=== PATIENT | female | born 1975 ===

== ENCOUNTER 2018-02-08 09:22 | Emergency (ER) | payer OTHER ==
[2018-02-08 09:22] VITALS: BMI 21.6
[2018-02-08 09:44] VITALS: TEMP 97.8
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
[2018-02-08] MEDS ORDERED: Oxycodone/Acetaminophen 5/325 mg Tab PO STA (09:56)
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
--- NOTE | 2018-02-08 11:15 | RAD ---
Date of service: 02/08/2018 PROCEDURE: Left Knee and patella Radiographs. HISTORY: Pain. COMPARISON: None. FINDINGS: BONES: Normal. No fracture. JOINTS: Normal. No osteoarthritis. JOINT EFFUSION: None. OTHER FINDINGS: None. IMPRESSION: Normal radiographs of the left knee.
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
[2018-02-08 12:16] VITALS: BP 104/64; PULSE 61; RESP 17; O2SAT 97
== END 2018-02-08 12:55 | disposition home or self-care (01) ==
LOC: ED 09:22
DX: S13.4XXA Sprain of ligaments of cervical spine, initial encounter (principal); V43.62XA Car passenger injured in collision with other type car in traffic accident, initial encounter; Y92.410 Unspecified street and highway as the place of occurrence of the external cause; R51 Headache; M25.511 Pain in right shoulder; M25.562 Pain in left knee; E04.2 Nontoxic multinodular goiter

== ENCOUNTER 2018-03-06 13:26 | Inpatient (IN) | payer MEDICAID, OTHER ==
[2018-03-06] MEDS ORDERED: Sodium Chloride 0.9% 1,000 ML IV STA (14:21)
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
[2018-03-06 15:26] LABS: BASO # 0.01 K/mm3 (0.0-2.0); BASO % 0.1 % (0.0-3.0); GRAN % 90.6 % (50.0-68.0); HEMOGLOBIN 11.8 g/dL (12.0-16.0); LYMPH # 0.5 (1.2-3.4); LYMPH % 6.2 % (22.0-35.0); MEAN CELL VOLUME 87.6 fl (80.0-105.0); MEAN CORPUSCULAR HEMOGLOBIN 29.9 pg (25.0-35.0); MEAN CORPUSCULAR HGB CONC 34.2 g/dl (31.0-37.0); MEAN PLATELET VOLUME 10.5 fl (7.0-11.0); MONO # 0.3 (0.1-0.6); MONO % 3.1 % (1.0-6.0); PLATELET COUNT 141 10^3/uL (120.0-450.0); RBC 3.94 10^6/uL (3.5-6.1); RED CELL DISTRIBUTION WIDTH 13.8 % (11.5-14.5); WHITE BLOOD COUNT 8.5 10^3/ul (4.5-11.0)
[2018-03-06] MEDS ORDERED: cefTRIAXone 1 gm 1 GM/100 ML BAG IVPB STA (15:42)
--- NOTE | 2018-03-06 15:48 | RAD ---
Date of service: 03/06/2018 HISTORY: fever COMPARISON: No prior. FINDINGS: LUNGS: No active pulmonary disease. PLEURA: No significant pleural effusion identified, no pneumothorax apparent. CARDIOVASCULAR: Normal. OSSEOUS STRUCTURES: No significant abnormalities. VISUALIZED UPPER ABDOMEN: Normal. OTHER FINDINGS: None. IMPRESSION: No active disease.
[2018-03-06 16:04] LABS: ALB/GLOB RATIO 1.2 (1.1-1.8); ALBUMIN 3.8 g/dL (3.0-4.8); ALT/SGPT 25 U/L (7-56); AST/SGOT 27 U/L (14-36); BLOOD UREA NITROGEN 16 mg/dL (7-21); CALCIUM 9.1 mg/dL (8.4-10.5); GFR NON-AFRICAN AMERICAN 44
[2018-03-06 16:08] LABS: ANISOCYTOSIS SLIGHT; BAND 2 % (0-2); HYPOCHROMIA SLIGHT; LYMPHOCYTE 6 % (22.0-35.0); MONOCYTE 1 % (1.0-6.0); NEUTROPHIL 91 % (50.0-70.0); PLATELET ESTIMATE n (NORMAL); TOXIC GRANULATION SLIGHT
[2018-03-06 16:15] LABS: TROPONIN I < 0.01 ng/mL
[2018-03-06 16:37] LABS: URINE BILIRUBIN NEGATIVE (NEGATIVE); URINE BLOOD SMALL (NEGATIVE); URINE GLUCOSE (UA) NEGATIVE (NEGATIVE); URINE LEUKOCYTE ESTERASE SMALL Leu/uL (NEGATIVE); URINE PROTEIN 30 mg/dL (<30 mg/dL); URINE UROBILINOGEN 0.2 E.U./dL (<1 E.U./dL)
[2018-03-06 16:44] LABS: URINE APPEARANCE CLEAR (CLEAR); URINE COLOR YELLOW (YELLOW)
[2018-03-06 16:48] LABS: ERYTHROCYTE SEDIMENTATION RATE 68 mm/hr (0.0-20.0)
[2018-03-06 17:17] LABS: URINE BACTERIA MANY (NEG)
[2018-03-06 17:18] LABS: URINE AMORPHOUS SEDIMENT FEW
[2018-03-06] MEDS: Sodium Chloride 0.9% 1,000 ML IV SCH (18:11)
[2018-03-06 19:31] VITALS: BMI 20.7
--- NOTE | 2018-03-06 20:06 | CP.PCM.HP ---
Addendum entered and electronically signed by Jason Brito DO 09:08: In assessment and plan: Please replace 'Hx Morphine' with 'Hx Migraines' Original Note: <Jason Brito - Last Filed: 03/06/18 19:52> History of Present Illness - History of Present Illness History of Present Illness: Medicine H&P: Alisha PGY - 2, IM Resident Chief Complaint: Flank pain HPI: 42 year old female with no pertinent medical history presents with 2- 3 days of R flank and associated nausea. Patient was seen by her PMD yesterday , Dr. Chaves, who ordered a CT Abdomen/Pelvis, which revealed perinephric stranding on the right side, and instructed her to go to the ED. Patient also states that she is having burning on urination and appreciates a foul smell with urination. Patient denies any hematuria, but admits to subjective fevers and chills at home. Patient sister at bedside providing translation. Review of systems: 12 Point ROS Obtained and negative except as per HPI Surgical History: Patient denies Medical History: Migraines Allergies: Seafood Social History: Denies illicits, tobacco; + social alcohol Home Meds: Reviewed, as per MAR Family History: Kidney stones PMD: Dr. Chaves Present on Admission - Present on Admission Any Indicators Present on Admission: No Past Patient History - Infectious Disease Hx of Infectious Diseases: None - Past Medical History & Family History Past Medical History?: Yes - Past Social History Smoking Status: Never Smoked - CARDIAC Hx Cardiac Disorders: Yes (HYPOTENSION) - PULMONARY Hx Respiratory Disorders: No - NEUROLOGICAL Hx Neurological Disorder: Yes Hx Migraine: Yes - HEENT Hx HEENT Problems: Yes Other/Comment: TONSILITIS - RENAL Hx Chronic Kidney Disease: No - ENDOCRINE/METABOLIC Hx Endocrine Disorders: No - HEMATOLOGICAL/ONCOLOGICAL Hx Blood Disorders: No - INTEGUMENTARY Hx Dermatological Problems: No - MUSCULOSKELETAL/RHEUMATOLOGICAL Hx Musculoskeletal Disorders: No Hx Falls: No - GASTROINTESTINAL Hx Gastrointestinal Disorders: Yes (GASTRITIS) - GENITOURINARY/GYNECOLOGICAL Hx Genitourinary Disorders: No - PSYCHIATRIC Hx Psychophysiologic Disorder: No - SURGICAL HISTORY Hx Surgeries: Yes (TONSILECTOMY) - ANESTHESIA Hx Anesthesia: Yes Hx Anesthesia Reactions: No Hx Malignant Hyperthermia: No Meds Allergies/Adverse Reactions: Allergies Allergy/AdvReac Type Severity Reaction Status Date / Time seafood Allergy RASH Uncoded 02/08/18 09:27 Physical Exam - Constitutional Appears: Well - Head Exam Head Exam: ATRAUMATIC, NORMAL INSPECTION, NORMOCEPHALIC - Eye Exam Eye Exam: EOMI, Normal appearance, PERRL Pupil Exam: NORMAL ACCOMODATION, PERRL - ENT Exam ENT Exam: Mucous Membranes Moist, Normal Exam - Neck Exam Neck exam: Positive for: Normal Inspection - Respiratory Exam Respiratory Exam: Clear to Auscultation Bilateral, NORMAL BREATHING PATTERN - Cardiovascular Exam Cardiovascular Exam: REGULAR RHYTHM - GI/Abdominal Exam GI & Abdominal Exam: Normal Bowel Sounds, Soft. absent: Tenderness - Extremities Exam Extremities exam: Positive for: normal inspection - Back Exam Back exam: CVA tenderness (R), NORMAL INSPECTION - Neurological Exam Neurological exam: Alert, CN II-XII Intact, Normal Gait, Oriented x3, Reflexes Normal - Psychiatric Exam Psychiatric exam: Normal Affect, Normal Mood - Skin Skin Exam: Dry, Intact, Normal Color, Warm Results - Vital Signs Recent Vital Signs: Last Vital Signs Temp 98.7 F 03/06/18 19:16 Pulse 107 H 03/06/18 19:16 Resp 18 03/06/18 19:16 BP 92/56 L 03/06/18 19:16 Pulse Ox 98 03/06/18 18:43 - Labs Result Diagrams: 03/06/18 15:00 03/06/18 15:00 Assessment & Plan - Assessment and Plan (Free Text) Assessment: 42 year old female presenting with right sided flank tenderness indicative of pyelonephritis. CT abdomen pelvis shows perinephric stranding, and Aime's on R side is positive. Patient states she has subjective fevers and chills indicative of infection, but VSS and no leukocytosis here. Plan Pyelonephritis - Morphine prn for pain - Rocephin - IVF with NS - ACEP prn for fever Hx Morphine - No symptoms right now, nor does patient take home meds GI/DVT PPX - Viktoria score low, no chemical DVT PPX needed - GI PPX: pepcid <Rangasamy,Ajantha - Last Filed: 03/07/18 18:33> Results - Vital Signs Recent Vital Signs: Last Vital Signs Temp 99.2 F 08/23/18 16:48 Pulse 92 H 03/07/18 16:48 Resp 20 03/07/18 16:48 BP 84/60 L 03/07/18 16:48 Pulse Ox 95 03/07/18 16:48 - Labs Result Diagrams: 03/07/18 09:00 03/07/18 09:00 Labs: Laboratory Results - last 24 hr 03/07/18 03/07/18 03/07/18 03:40 09:00 09:00 WBC 3.5 L D RBC 3.35 L Hgb 10.0 L Hct 29.1 L MCV 86.9 MCH 29.9 MCHC 34.4 RDW 14.3 Plt Count 109 L MPV 10.5 Gran % 79.7 H Lymph % (Auto) 14.3 L [place] % (Auto) 5.1 Eos % (Auto) 0.6 L Baso % (Auto) 0.3 Gran # 2.79 Lymph # (Auto) 0.5 L [place] # (Auto) 0.2 Eos # (Auto) 0.0 Baso # (Auto) 0.01 pO2 VBG pH VBG pCO2 VBG HCO3 VBG Total CO2 VBG O2 Sat (Calc) VBG Base Excess VBG Potassium Glucose Lactate FiO2 Sodium 136 Potassium 3.2 L Chloride 105 Carbon Dioxide 23 Anion Gap 11 BUN 11 Creatinine 0.8 Est GFR ( Amer) > 60 Est GFR (Non-Af Amer) > 60 Random Glucose 129 H Calcium 8.4 Troponin I < 0.01 < 0.01 Venous Blood Potassium 03/07/18 03/07/18 15:15 16:50 WBC RBC Hgb Hct MCV MCH MCHC RDW Plt Count MPV Gran % Lymph % (Auto) [place] % (Auto) Eos % (Auto) Baso % (Auto) Gran # Lymph # (Auto) [place] # (Auto) Eos # (Auto) Baso # (Auto) pO2 285 H VBG pH 7.38 VBG pCO2 36.0 L VBG HCO3 21.3 VBG Total CO2 22.4 VBG O2 Sat (Calc) 100.2 H VBG Base Excess -3.3 L VBG Potassium 3.4 L Glucose 149 H Lactate 1.2 FiO2 21.0 Sodium 134.0 Potassium Chloride 108.0 H Carbon Dioxide Anion Gap BUN Creatinine Est GFR ( Amer) Est GFR (Non-Af Amer) Random Glucose Calcium Troponin I < 0.01 Venous Blood Potassium 3.4 L Attending/Attestation - Attestation I have personally seen and examined this patient.: Yes I have fully participated in the care of the patient.: Yes I have reviewed all pertinent clinical information: Yes Notes (Text): 03/07/18 18:31 Attending note; Patient seen and examined with resident in ER. Patient's boyfriend by the bedside. Patient is a 42 year old female with no pertinent medical history presents with 2-3 days of R flank and associated nausea. The patient was evaluated by her PMD yesterday. CT abdomen and pelvis was ordered. Which showed right-sided perinephric stranding. Patient also has urinary frequency .urgency and foul-smelling urine. Acute right-sided pyelonephritis; started on IV Rocephin. Continue IV fluids. Monitor patient closely. Urine culture is pending. Upon discharge patient will be referred to [facility] clinic.
[2018-03-06] MEDS: Morphine 2 mg/ml ISec IVP PRN (20:08)
--- NOTE | 2018-03-06 23:19 | CARD ---
APPROVED REPORT Date of service: 03/06/2018 EKG Measurement Heart [id number] <Conclusion> Sinus rhythm with with premature ventricular complexes Abnormal ECG
[2018-03-07] MEDS: Morphine 2 mg/ml ISec IVP PRN ×2 (02:40→11:00)
--- NOTE | 2018-03-07 03:30 | PCM.RRT ---
<Jason Brito - Last Filed: 03/07/18 03:11> KEYSEATING MACHINE SET UP OPERATOR Nurse Assessment - Situation Date: 03/07/18 Time KEYSEATING MACHINE SET UP OPERATOR was called: 02:47 KEYSEATING MACHINE SET UP OPERATOR Responder Arrival Time: 02:50 KEYSEATING MACHINE SET UP OPERATOR Location:: [address] [place] [address] Room Number: 366-1 KEYSEATING MACHINE SET UP OPERATOR Reason for Call: Chest Pain KEYSEATING MACHINE SET UP OPERATOR Called By: RN - IV IV Inserted during KEYSEATING MACHINE SET UP OPERATOR?: No - Respiratory Oxygen Delivery Method: Nasal Cannula @L/min Oxygen Flow Rate: 2 Received Nebulizer Treatments:: No Was the Patient Ventilated with Bag/Mask 100% O2?: No Secretions Suctioned?: No Was the Patient Placed on a Ventilator?: No - Medication Medications Administered During KEYSEATING MACHINE SET UP OPERATOR: morphine given prior to KEYSEATING MACHINE SET UP OPERATOR @ 2:40AM - Diagnostic Test Ordered EKG: Yes Chest X-Ray: No CT Scan: No - Stat Labs Ordered KEYSEATING MACHINE SET UP OPERATOR Stat Labs Ordered: TROPONIN CPR started during KEYSEATING MACHINE SET UP OPERATOR?: No - Vital Signs Vital Sign: Rapid Response Vital Sign Blood Pressure 102/68 Pulse Rate 100 Respiratory Rate 18 Temperature 98.3 F Oxygen Saturation 99 - Time KEYSEATING MACHINE SET UP OPERATOR Ended Time KEYSEATING MACHINE SET UP OPERATOR Ended: 03:10 - Vital Signs at end of KEYSEATING MACHINE SET UP OPERATOR Vital Signs at end of KEYSEATING MACHINE SET UP OPERATOR: Rapid Response End Vital Sign Blood Pressure 106/73 Pulse Rate 112 Respiratory Rate 20 Temperature 99.5 F O2 Sat by Pulse Oximetry 100 I.Reason for KEYSEATING MACHINE SET UP OPERATOR - A) Acute Change in Patient: (Select all that apply): Staff member or family is worried about patient (Nurse reported patient having chest pain) - Respiratory Oxygen Flow Rate: 2 - Constitutional Appears: Well - Head Head Exam: ATRAUMATIC, NORMAL INSPECTION, NORMOCEPHALIC - Eyes Eye Exam: EOMI, PERRL - Respiratory Exam Respiratory Exam: NORMAL BREATHING PATTERN. absent: Accessory Muscle Use, Chest Wall Tenderness, Decreased Breath Sounds - Cardiovascular Exam Cardiovascular Exam: Tachycardia, REGULAR RHYTHM - GI/Abdominal Exam GI & Abdominal Exam: Soft. absent: Tenderness - Neurological Exam Neurological Exam: CN II-XII Intact, Oriented x3 - Extremities Exam Extremities Exam: Full ROM, Normal Capillary Refill Plan - Assessment of Findings&Treatment Plan KEYSEATING MACHINE SET UP OPERATOR was called @ 2:47, Resident response time was @ 2:49. RN informed me that patient was having chest pain, but vitals were stable with mild tachycardia (106 /73, 111, 100% O2 sat). Patient stated that she was having pressure like chest pain radiating down her arm. EKG was obtained, which showed sinus tachycardia. Patient's pain resolved while we were in the room. Patient was hemodynamically stable, and in no acute distress when we left the room. Of note , chest pain was reproducible on exam, thus most likely musculoskeletal. Recommend - EKG - Tropes X 3 <Vale Smiley - Last Filed: 03/07/18 04:09> KEYSEATING MACHINE SET UP OPERATOR Nurse Assessment - Vital Signs Vital Sign: Rapid Response Vital Sign Blood Pressure 102/68 Pulse Rate 100 Respiratory Rate 18 Temperature 98.3 F Oxygen Saturation 99 - Vital Signs at end of KEYSEATING MACHINE SET UP OPERATOR Vital Signs at end of KEYSEATING MACHINE SET UP OPERATOR: Rapid Response End Vital Sign Blood Pressure 106/73 Pulse Rate 112 Respiratory Rate 20 Temperature 99.5 F O2 Sat by Pulse Oximetry 100 Attending/Attestation - Attestation I have personally seen and examined this patient.: Yes I have fully participated in the care of the patient.: Yes I have reviewed all pertinent clinical information, including history, physical exam and plan: Yes Notes (Text): 03/07/18 04:07 Patient was seen at bedside with residents. Agree with plan. Medical record was reviewed. Initial EKG at admission shows PVC and PAC.
[2018-03-07] MEDS: Sodium Chloride 0.9% 1,000 ML IV SCH ×2 (04:41→22:56)
[2018-03-07] MEDS: Pantoprazole 40 mg EC Tab PO SCH (06:19)
[2018-03-07 09:18] LABS: BASO # 0.01 K/mm3 (0.0-2.0); BASO % 0.3 % (0.0-3.0); EOS % 0.6 % (1.5-5.0); GRAN # 2.79 (1.4-6.5); GRAN % 79.7 % (50.0-68.0); LYMPH # 0.5 (1.2-3.4); LYMPH % 14.3 % (22.0-35.0); MEAN CELL VOLUME 86.9 fl (80.0-105.0); MEAN CORPUSCULAR HEMOGLOBIN 29.9 pg (25.0-35.0); MEAN CORPUSCULAR HGB CONC 34.4 g/dl (31.0-37.0); MEAN PLATELET VOLUME 10.5 fl (7.0-11.0); MONO # 0.2 (0.1-0.6); MONO % 5.1 % (1.0-6.0); RBC 3.35 10^6/uL (3.5-6.1); RED CELL DISTRIBUTION WIDTH 14.3 % (11.5-14.5)
[2018-03-07 09:19] LABS: WHITE BLOOD COUNT 3.5 10^3/ul (4.5-11.0)
[2018-03-07 09:47] LABS: TROPONIN I < 0.01 ng/mL
[2018-03-07 09:49] LABS: BLOOD UREA NITROGEN 11 mg/dL (7-21); CALCIUM 8.4 mg/dL (8.4-10.5); GFR NON-AFRICAN AMERICAN > 60
[2018-03-07] MEDS ORDERED: cefTRIAXone 1 gm 1 GM/100 ML BAG IVPB SCH (10:00)
--- NOTE | 2018-03-07 11:35 | CP.PCM.PN ---
<Kenny Powers - Last Filed: 03/07/18 11:53> Subjective - Date & Time of Evaluation Date of Evaluation: 03/07/18 Time of Evaluation: 06:05 - Subjective Subjective: Patient seen and examined at bedside. HeR right flank pain is controlled with meds. She still complaiting of dysurea, urinary frequency. SPEECH WRITER was called at 2: 40 am overnight for chest pain and sinus tachy of 106. Chest pain resolved and patient was hemodynamically stable. Tmax overnight of 101.2, patient received tylenol and fever resolved. Patient denied CP, SOB, palpitations, headache, dizziness, bowel movement changes. Objective - Vital Signs/Intake and Output Vital Signs (last 24 hours): Temp Pulse Resp BP Pulse Ox 99.1 F 104 H 20 106/69 100 03/07/18 08:20 03/07/18 08:20 03/07/18 08:20 03/07/18 08:20 03/07/18 08:20 Intake and Output: 03/07/18 03/07/18 06:59 18:59 Intake Total 1250 Balance 1250 - Medications Medications: Current Medications Acetaminophen (Tylenol 325mg Tab) 650 mg PO Q6H PRN PRN Reason: Fever >100.4 F Last Admin: 03/07/18 04:37 Dose: 650 mg Famotidine (Pepcid) 20 mg PO HS [facility] Ceftriaxone Sodium (Rocephin 1 Gram Ivpb) 1 gm in 100 mls @ 100 mls/hr IVPB DAILY [facility] PRN Reason: Protocol Last Admin: 03/07/18 10:03 Dose: 100 mls/hr Sodium Chloride (Sodium Chloride 0.9%) 1,000 mls @ 100 mls/hr IV .Q10H [facility] Last Admin: 03/07/18 04:41 Dose: 100 mls/hr Morphine Sulfate (Morphine) 2 mg IVP Q4H PRN PRN Reason: Pain, severe (8-10) Last Admin: 03/07/18 11:00 Dose: 2 mg Pantoprazole Sodium (Protonix Ec Tab) 40 mg PO 0600 [facility] Last Admin: 03/07/18 06:19 Dose: 40 mg - Labs Labs: 03/07/18 09:00 03/07/18 09:00 - Constitutional Appears: Well, No Acute Distress - Head Exam Head Exam: ATRAUMATIC, NORMAL INSPECTION, NORMOCEPHALIC - Eye Exam Eye Exam: EOMI, Normal appearance, PERRL Pupil Exam: NORMAL ACCOMODATION, PERRL - ENT Exam ENT Exam: Mucous Membranes Moist, Normal Exam - Neck Exam Neck Exam: Full ROM, Normal Inspection. absent: Lymphadenopathy - Respiratory Exam Respiratory Exam: Clear to Ausculation Bilateral, NORMAL BREATHING PATTERN - Cardiovascular Exam Cardiovascular Exam: REGULAR RHYTHM, +S1, +S2. absent: Murmur - GI/Abdominal Exam GI & Abdominal Exam: Soft, Normal Bowel Sounds. absent: Tenderness - Rectal Exam Rectal Exam: Deferred - Extremities Exam Extremities Exam: Full ROM, Normal Capillary Refill, Normal Inspection. absent : Joint Swelling, Pedal Edema - Back Exam Back Exam: CVA tenderness (R). absent: rash noted - Neurological Exam Neurological Exam: Alert, Awake, CN II-XII Intact, Normal Gait, Oriented x3 - Psychiatric Exam Psychiatric exam: Normal Affect, Normal Mood - Skin Skin Exam: Dry, Intact, Normal Color, Warm Assessment and Plan - Assessment and Plan (Free Text) Assessment: 42 year old female presenting with right sided flank tenderness, dysurea, urinary frequency suggestive of pyelonephritis. CT abdomen pelvis showed perinephric stranding on right side. No leukocytosis but there is left shift. Plan: Right flank pain Pyelonephritis - CT abdomen pelvis showed perinephric stranding on right side (done outside, PMD ordered) - Continue rocephin - Continue IVF with NS@ 100cc/hr - Alternating Tylenol / Ibuprofen for fever - UA: +LE , + BACTERIA, + BLOOD - Urine cx pending - Morphine prn for pain History of Migraine - No complaints at this time - No medication needed - GI ppx pepcid - Regular diet - SCD Case reviewed and discussed with Dr Thurman <Bradford Thurman - Last Filed: 03/07/18 18:37> Objective - Vital Signs/Intake and Output Vital Signs (last 24 hours): Temp Pulse Resp BP Pulse Ox 99.2 F 92 H 20 84/60 L 95 03/07/18 16:48 03/07/18 16:48 03/07/18 16:48 03/07/18 16:48 03/07/18 16:48 Intake and Output: 03/07/18 03/07/18 06:59 18:59 Intake Total 1250 Balance 1250 - Medications Medications: Current Medications Acetaminophen (Tylenol 325mg Tab) 650 mg PO Q6H PRN PRN Reason: Fever >100.4 F Last Admin: 03/07/18 13:50 Dose: 650 mg Famotidine (Pepcid) 20 mg PO HS [facility] Ceftriaxone Sodium (Rocephin 1 Gram Ivpb) 1 gm in 100 mls @ 100 mls/hr IVPB DAILY [facility] PRN Reason: Protocol Last Admin: 03/07/18 10:03 Dose: 100 mls/hr Sodium Chloride (Sodium Chloride 0.9%) 100 mls @ 200 mls/hr IV .Q30M [facility] Meropenem 500 mg/ Sodium (Chloride) 50 mls @ 100 mls/hr IVPB STAT STA PRN Reason: Protocol Stop: 03/07/18 18:57 Ibuprofen (Motrin Tab) 400 mg PO Q6H PRN PRN Reason: Fever >100.4 F Last Admin: 03/07/18 15:48 Dose: 400 mg Morphine Sulfate (Morphine) 2 mg IVP Q4H PRN PRN Reason: Pain, severe (8-10) Last Admin: 03/07/18 11:00 Dose: 2 mg Ondansetron HCl (Zofran Inj) 4 mg IVP Q12H PRN PRN Reason: Nausea/Vomiting Last Admin: 03/07/18 16:38 Dose: 4 mg Pantoprazole Sodium (Protonix Ec Tab) 40 mg PO 0600 [facility] Last Admin: 03/07/18 06:19 Dose: 40 mg - Labs Labs: 03/07/18 09:00 03/07/18 09:00 Attending/Attestation - Attestation I have personally seen and examined this patient.: Yes I have fully participated in the care of the patient.: Yes I have reviewed all pertinent clinical information, including history, physical exam and plan: Yes Notes (Text): 03/07/18 18:35 Attending note; Patient seen and examined with resident. Patient's family by the bedside. Patient is a 42 year old female with no significant past medical history is admitted with acute r sided pyelonephritis. Acute right-sided pyelonephritis; started on IV Rocephin. Patient is still has MAXIMUM TEMPERATURE of 102. 1 dose of meropenem ordered. ID evaluation requested. Fever; continue Tylenol and Motrin. DVT shock panel is negative for lactic acidosis. Continue IV fluids. Blood culture ordered. Urine culture is pending. Monitor patient closely. Upon discharge patient will be referred to [facility] clinic. 03/07/18 18:37
[2018-03-07] MEDS ORDERED: Sodium Chloride 0.9% 500 ML IV STA (15:15)
[2018-03-07 16:56] LABS: VENOUS BLOOD GAS BASE EXCESS -3.3 mmol/L (0.0-2.0); VENOUS BLOOD GAS PO2 285 mm/Hg (30-55); VENOUS BLOOD PH 7.38 (7.32-7.43)
[2018-03-07] MEDS ORDERED: Sodium Chloride 0.9% 1,000 ML IV STA (17:17)
[2018-03-07] MEDS ORDERED: Potassium Chloride 20 mEq ER Tab PO ONE (17:18)
[2018-03-07] MEDS ORDERED: Sodium Chloride 0.9% 100 ML IV SCH (17:30)
[2018-03-07] MEDS ORDERED: Meropenem 500 MG in Sodium Chloride 0.9% 50 ML IVPB STA (18:28)
--- NOTE | 2018-03-07 18:54 | CARD ---
APPROVED REPORT Date of service: 03/07/2018 EKG Measurement Heart [id number] RI [id number] <Conclusion> Sinus tachycardia Otherwise normal ECG
--- NOTE | 2018-03-07 19:22 | CARD ---
APPROVED REPORT Date of service: 03/07/2018 EKG Measurement Heart [id number] <Conclusion> Normal sinus rhythm Normal ECG
--- NOTE | 2018-03-07 19:24 | CARD ---
APPROVED REPORT Date of service: 03/07/2018 EKG Measurement Heart [id number] [id number] <Conclusion> Sinus tachycardia Otherwise normal ECG
[2018-03-07] MEDS: Meropenem IV 1 gm in NS 50 ML IVPB SCH (22:01)
[2018-03-08] MEDS: Morphine 2 mg/ml ISec IVP PRN ×3 (02:03→19:53)
[2018-03-08] MEDS: Sodium Chloride 0.9% 1,000 ML IV SCH ×2 (02:45→23:59)
[2018-03-08] MEDS: Meropenem IV 1 gm in NS 50 ML IVPB SCH ×3 (05:40→21:23)
[2018-03-08] MEDS: Pantoprazole 40 mg EC Tab PO SCH (05:41)
[2018-03-08 06:48] LABS: BASO # 0.01 K/mm3 (0.0-2.0); BASO % 0.2 % (0.0-3.0); EOS % 0.7 % (1.5-5.0); GRAN # 2.67 (1.4-6.5); GRAN % 66.6 % (50.0-68.0); HEMOGLOBIN 9.7 g/dL (12.0-16.0); LYMPH # 0.8 (1.2-3.4); LYMPH % 19.5 % (22.0-35.0); MEAN CELL VOLUME 85.8 fl (80.0-105.0); MEAN PLATELET VOLUME 11.2 fl (7.0-11.0); MONO # 0.5 (0.1-0.6); RBC 3.23 10^6/uL (3.5-6.1); RED CELL DISTRIBUTION WIDTH 14.4 % (11.5-14.5)
[2018-03-08 06:59] LABS: ALBUMIN 2.7 g/dL (3.0-4.8); ALT/SGPT 53 U/L (7-56); AST/SGOT 73 U/L (14-36); BLOOD UREA NITROGEN 9 mg/dL (7-21); CALCIUM 8.1 mg/dL (8.4-10.5); GFR NON-AFRICAN AMERICAN > 60
--- NOTE | 2018-03-08 13:53 | CP.PCM.PN ---
<Kenyn Powers - Last Filed: 03/08/18 14:16> Subjective - Date & Time of Evaluation Date of Evaluation: 03/08/18 Time of Evaluation: 05:37 - Subjective Subjective: Patient seen and examined at bedside. Her right flank pain is improving. She still complaiting of dysurea, urinary frequency. Tmax overnight of 101.8, patient received tylenol and fever resolved. She tolerates her diet. Patient denied CP, SOB, palpitations, headache, dizziness, bowel movement changes. Objective - Vital Signs/Intake and Output Vital Signs (last 24 hours): Temp Pulse Resp BP Pulse Ox 99.1 F 103 H 20 103/64 100 03/08/18 06:00 03/08/18 06:00 03/08/18 06:00 03/08/18 06:00 03/08/18 06:00 - Medications Medications: Current Medications Acetaminophen (Tylenol 325mg Tab) 650 mg PO Q6H PRN PRN Reason: Fever >100.4 F Last Admin: 03/08/18 01:52 Dose: 650 mg Famotidine (Pepcid) 20 mg PO HS [facility] Last Admin: 03/07/18 22:55 Dose: 20 mg Sodium Chloride (Sodium Chloride 0.9%) 1,000 mls @ 200 mls/hr IV .Q5H [facility] Last Admin: 03/08/18 02:45 Dose: 200 mls/hr Meropenem (Merrem Iv 1 Gm Premix) 50 mls @ 100 mls/hr IVPB Q8 [facility] PRN Reason: Protocol Last Admin: 03/08/18 13:49 Dose: 100 mls/hr Ibuprofen (Motrin Tab) 400 mg PO Q6H PRN PRN Reason: Fever >100.4 F Last Admin: 03/08/18 05:42 Dose: 400 mg Morphine Sulfate (Morphine) 2 mg IVP Q4H PRN PRN Reason: Pain, severe (8-10) Last Admin: 03/08/18 13:48 Dose: 2 mg Ondansetron HCl (Zofran Inj) 4 mg IVP Q12H PRN PRN Reason: Nausea/Vomiting Last Admin: 03/07/18 16:38 Dose: 4 mg Pantoprazole Sodium (Protonix Ec Tab) 40 mg PO 0600 [facility] Last Admin: 03/08/18 05:41 Dose: 40 mg - Constitutional Appears: Well - Head Exam Head Exam: ATRAUMATIC, NORMAL INSPECTION, NORMOCEPHALIC - Eye Exam Eye Exam: EOMI, Normal appearance, PERRL Pupil Exam: NORMAL ACCOMODATION, PERRL - ENT Exam ENT Exam: Mucous Membranes Moist, Normal Exam - Neck Exam Neck Exam: Full ROM, Normal Inspection. absent: Lymphadenopathy - Respiratory Exam Respiratory Exam: Clear to Ausculation Bilateral, NORMAL BREATHING PATTERN - Cardiovascular Exam Cardiovascular Exam: REGULAR RHYTHM, +S1, +S2. absent: Murmur - GI/Abdominal Exam GI & Abdominal Exam: Soft, Normal Bowel Sounds. absent: Tenderness - Extremities Exam Extremities Exam: Full ROM, Normal Capillary Refill, Normal Inspection. absent : Joint Swelling, Pedal Edema - Back Exam Back Exam: CVA tenderness (R) (resolving), NORMAL INSPECTION - Neurological Exam Neurological Exam: Alert, Awake, CN II-XII Intact, Oriented x3 - Psychiatric Exam Psychiatric exam: Normal Affect, Normal Mood - Skin Skin Exam: Dry, Intact, Normal Color, Warm Assessment and Plan - Assessment and Plan (Free Text) Assessment: 42 year old female presenting with right sided flank tenderness, dysurea, urinary frequency consistent of pyelonephritis. CT abdomen pelvis showed perinephric stranding on right side. No leukocytosis. spikes of fever of 101.8F Plan: Right flank pain Pyelonephritis - CT abdomen pelvis showed perinephric stranding on right side (done outside, PMD ordered) - Continue rocephin 1gm - Meropenem 1gm added - Continue IVF with NS@ 100cc/hr - Alternating Tylenol / Ibuprofen for fever - UA: +LE , + BACTERIA, + BLOOD - Urine culture showed gram negative rods - Morphine prn for pain - GI ppx pepcid - Regular diet - SCD Case reviewed and discussed with Dr Thurman <Bradford Thurman - Last Filed: 03/08/18 17:36> Objective - Vital Signs/Intake and Output Vital Signs (last 24 hours): Temp Pulse Resp BP Pulse Ox 99.8 F H 145 H 19 134/86 90 L 03/08/18 16:23 03/08/18 16:23 03/08/18 16:23 03/08/18 16:23 03/08/18 16:23 - Medications Medications: Current Medications Acetaminophen (Tylenol 325mg Tab) 650 mg PO Q6H PRN PRN Reason: Fever >100.4 F Last Admin: 03/08/18 01:52 Dose: 650 mg Enoxaparin Sodium (Lovenox) 40 mg SC DAILY [facility] PRN Reason: Protocol Last Admin: 03/08/18 16:30 Dose: 40 mg Famotidine (Pepcid) 20 mg PO HS [facility] Last Admin: 03/07/18 22:55 Dose: 20 mg Sodium Chloride (Sodium Chloride 0.9%) 1,000 mls @ 200 mls/hr IV .Q5H [facility] Last Admin: 03/08/18 02:45 Dose: 200 mls/hr Meropenem (Merrem Iv 1 Gm Premix) 50 mls @ 100 mls/hr IVPB Q8 [facility] PRN Reason: Protocol Last Admin: 03/08/18 13:49 Dose: 100 mls/hr Ibuprofen (Motrin Tab) 400 mg PO Q6H PRN PRN Reason: Fever >100.4 F Last Admin: 03/08/18 05:42 Dose: 400 mg Morphine Sulfate (Morphine) 2 mg IVP Q4H PRN PRN Reason: Pain, severe (8-10) Last Admin: 03/08/18 13:48 Dose: 2 mg Ondansetron HCl (Zofran Inj) 4 mg IVP Q12H PRN PRN Reason: Nausea/Vomiting Last Admin: 03/07/18 16:38 Dose: 4 mg Pantoprazole Sodium (Protonix Ec Tab) 40 mg PO 0600 [facility] Last Admin: 03/08/18 05:41 Dose: 40 mg Attending/Attestation - Attestation I have personally seen and examined this patient.: Yes I have fully participated in the care of the patient.: Yes I have reviewed all pertinent clinical information, including history, physical exam and plan: Yes Notes (Text): 03/08/18 17:34 Attending note; Patient seen and examined with resident. Patient's family by the bedside. Patient is a 42 year old female with no significant past medical history is admitted with acute Right sided pyelonephritis. Acute right-sided pyelonephritis; started on IV Rocephin. Patient is still has MAXIMUM TEMPERATURE of 102 this morning. ID evaluation requested. Currently started on IV meropenem. Patient has atypical chest last back pain; cardiac enzymes 4 negative. EKG shows sinus tachycardia. No significant lactic acidosis. Fever; continue Tylenol and Motrin. DVT shock panel is negative for lactic acidosis. Continue IV fluids. Blood culture is negative. Urine culture is positive for gram-negative rods. Monitor patient closely. Upon discharge patient will be referred to [facility] clinic.
[2018-03-08] MEDS: Enoxaparin 40 mg Syringe SC SCH (16:30)
--- NOTE | 2018-03-08 22:23 | CP.PCM.CON ---
History of Present Illness - History of Present Illness History of Present Illness: 42 year old female with no significant past medical history came in to [facility] because of right flank pain for the past 2-3 days, associated with nausea. She also had fever and chills. She states her urine also has a foul smell. She denies headache or dizziness, no hematuria or dysuria, no abdominal pain, no sore throat, no cough or rhinorrhea, no chest pain, no SOB, no diarrhea. CT scan of the abdomen and pelvis is showing perinephric stranding on the right. Infectious Diseases consult is requested to further evaluate and manage. Review of Systems - Review of Systems All systems: reviewed and no additional remarkable complaints except (as per HPI ) Past Patient History - Infectious Disease Hx of Infectious Diseases: None - Past Medical History & Family History Past Medical History?: Yes - Past Social History Smoking Status: Never Smoked - CARDIAC Hx Cardiac Disorders: Yes (HYPOTENSION) - PULMONARY Hx Respiratory Disorders: No - NEUROLOGICAL Hx Neurological Disorder: Yes Hx Migraine: Yes - HEENT Hx HEENT Problems: Yes Other/Comment: TONSILITIS - RENAL Hx Chronic Kidney Disease: No - ENDOCRINE/METABOLIC Hx Endocrine Disorders: No - HEMATOLOGICAL/ONCOLOGICAL Hx Blood Disorders: No - INTEGUMENTARY Hx Dermatological Problems: No - MUSCULOSKELETAL/RHEUMATOLOGICAL Hx Musculoskeletal Disorders: No Hx Falls: No - GASTROINTESTINAL Hx Gastrointestinal Disorders: Yes (GASTRITIS) - GENITOURINARY/GYNECOLOGICAL Hx Genitourinary Disorders: No - PSYCHIATRIC Hx Psychophysiologic Disorder: No - SURGICAL HISTORY Hx Surgeries: Yes (TONSILECTOMY) - ANESTHESIA Hx Anesthesia: Yes Hx Anesthesia Reactions: No Hx Malignant Hyperthermia: No Meds Allergies/Adverse Reactions: Allergies Allergy/AdvReac Type Severity Reaction Status Date / Time seafood Allergy RASH Uncoded 02/08/18 09:27 - Medications Medications: Current Medications Acetaminophen (Tylenol 325mg Tab) 650 mg PO Q6H PRN PRN Reason: Fever >100.4 F Last Admin: 03/07/18 13:50 Dose: 650 mg Famotidine (Pepcid) 20 mg PO HS ANIBAL Ceftriaxone Sodium (Rocephin 1 Gram Ivpb) 1 gm in 100 mls @ 100 mls/hr IVPB DAILY ANIBAL PRN Reason: Protocol Last Admin: 03/07/18 10:03 Dose: 100 mls/hr Sodium Chloride (Sodium Chloride 0.9%) 1,000 mls @ 200 mls/hr IV .Q5H ANIBAL Ibuprofen (Motrin Tab) 400 mg PO Q6H PRN PRN Reason: Fever >100.4 F Last Admin: 03/07/18 15:48 Dose: 400 mg Morphine Sulfate (Morphine) 2 mg IVP Q4H PRN PRN Reason: Pain, severe (8-10) Last Admin: 03/07/18 11:00 Dose: 2 mg Ondansetron HCl (Zofran Inj) 4 mg IVP Q12H PRN PRN Reason: Nausea/Vomiting Last Admin: 03/07/18 16:38 Dose: 4 mg Pantoprazole Sodium (Protonix Ec Tab) 40 mg PO 0600 ANIBAL Last Admin: 03/07/18 06:19 Dose: 40 mg Physical Exam - Constitutional Appears: Non-toxic, No Acute Distress - Head Exam Head Exam: NORMAL INSPECTION - Neck Exam Neck exam: Negative for: Meningismus - Respiratory Exam Respiratory Exam: Decreased Breath Sounds. absent: Rales - Cardiovascular Exam Cardiovascular Exam: +S1, +S2 - GI/Abdominal Exam GI & Abdominal Exam: Soft. absent: Tenderness Results - Vital Signs Recent Vital Signs: Last Vital Signs Temp 98.1 F 03/07/18 21:07 Pulse 88 03/07/18 21:07 Resp 19 03/07/18 21:07 BP 92/56 L 03/07/18 21:07 Pulse Ox 97 03/07/18 21:07 - Labs Result Diagrams: 03/08/18 05:45 03/08/18 05:45 Labs: Laboratory Results - last 24 hr 03/07/18 03/07/18 03/07/18 03:40 09:00 09:00 WBC 3.5 L D RBC 3.35 L Hgb 10.0 L Hct 29.1 L MCV 86.9 MCH 29.9 MCHC 34.4 RDW 14.3 Plt Count 109 L MPV 10.5 Gran % 79.7 H Lymph % (Auto) 14.[address] % (Auto) 5.1 Eos % (Auto) 0.6 L Baso % (Auto) 0.3 Gran # 2.79 Lymph # (Auto) 0.[address] # (Auto) 0.2 Eos # (Auto) 0.0 Baso # (Auto) 0.01 pO2 VBG pH VBG pCO2 VBG HCO3 VBG Total CO2 VBG O2 Sat (Calc) VBG Base Excess VBG Potassium Glucose Lactate FiO2 Sodium 136 Potassium 3.2 L Chloride 105 Carbon Dioxide 23 Anion Gap 11 BUN 11 Creatinine 0.8 Est GFR ( Amer) > 60 Est GFR (Non-Af Amer) > 60 Random Glucose 129 H Calcium 8.4 Troponin I < 0.01 < 0.01 Venous Blood Potassium 03/07/18 03/07/18 15:15 16:50 WBC RBC Hgb Hct MCV MCH MCHC RDW Plt Count MPV Gran % Lymph % (Auto) [place] % (Auto) Eos % (Auto) Baso % (Auto) Gran # Lymph # (Auto) [place] # (Auto) Eos # (Auto) Baso # (Auto) pO2 285 H VBG pH 7.38 VBG pCO2 36.0 L VBG HCO3 21.3 VBG Total CO2 22.4 VBG O2 Sat (Calc) 100.2 H VBG Base Excess -3.3 L VBG Potassium 3.4 L Glucose 149 H Lactate 1.2 FiO2 21.0 Sodium 134.0 Potassium Chloride 108.0 H Carbon Dioxide Anion Gap BUN Creatinine Est GFR ( Amer) Est GFR (Non-Af Amer) Random Glucose Calcium Troponin I < 0.01 Venous Blood Potassium 3.4 L Assessment & Plan - Assessment and Plan (Free Text) Plan: Assessment Sepsis due to right sided pyelonephritis Plan Switched to Merrem pending blood cx and urine cx; reviewed CT A/P follow up HIV test will monitor clinically
[2018-03-09] MEDS: Meropenem IV 1 gm in NS 50 ML IVPB SCH ×3 (05:19→21:43)
[2018-03-09] MEDS: Sodium Chloride 0.9% 1,000 ML IV SCH (05:20)
[2018-03-09] MEDS: Morphine 2 mg/ml ISec IVP PRN (08:54)
[2018-03-09 09:16] LABS: BASO # 0.02 K/mm3 (0.0-2.0); BASO % 0.3 % (0.0-3.0); EOS # 0.1 (0.0-0.7); EOS % 1.5 % (1.5-5.0); GRAN # 5.85 (1.4-6.5); GRAN % 77.8 % (50.0-68.0); LYMPH % 13.3 % (22.0-35.0); MEAN CELL VOLUME 84.4 fl (80.0-105.0); MEAN CORPUSCULAR HEMOGLOBIN 29.4 pg (25.0-35.0); MEAN CORPUSCULAR HGB CONC 34.8 g/dl (31.0-37.0); MEAN PLATELET VOLUME 10.5 fl (7.0-11.0); MONO # 0.5 (0.1-0.6); MONO % 7.1 % (1.0-6.0); RBC 3.4 10^6/uL (3.5-6.1); RED CELL DISTRIBUTION WIDTH 14.5 % (11.5-14.5); WHITE BLOOD COUNT 7.5 10^3/ul (4.5-11.0)
[2018-03-09 09:38] LABS: ALB/GLOB RATIO 1.1 (1.1-1.8); ALBUMIN 3.1 g/dL (3.0-4.8); ALT/SGPT 43 U/L (7-56); AST/SGOT 51 U/L (14-36); BLOOD UREA NITROGEN 5 mg/dL (7-21); CALCIUM 8.5 mg/dL (8.4-10.5); GFR NON-AFRICAN AMERICAN > 60
[2018-03-09] MEDS ORDERED: Iohexol 240 (50 ml) ONE (13:21)
--- NOTE | 2018-03-09 14:03 | CP.PCM.PN ---
<Marielena Lubin - Last Filed: 03/09/18 16:07> Subjective - Date & Time of Evaluation Date of Evaluation: 03/09/18 Time of Evaluation: 13:59 - Subjective Subjective: Marielena Lubin, PGY1 Progress note for Dr. Ku Ms. Bauer was seen at bedside this morning. She reported some chills and some abdominal fullness. She reported her last BM was small, formed, this morning. She also reported chest pain in the L side, that does not radiate, and some shortness of breath. She also complained of back pain that is dull and achy. She denies nausea, vomiting, dysuria, and diarrhea. Objective - Vital Signs/Intake and Output Vital Signs (last 24 hours): Temp Pulse Resp BP Pulse Ox 100.3 F H 92 H 20 109/77 94 L 03/09/18 09:45 03/09/18 07:55 03/09/18 07:55 03/09/18 07:55 03/09/18 07:55 Intake and Output: 03/09/18 03/09/18 06:59 18:59 Intake Total 3680 Balance 3680 - Medications Medications: Current Medications Acetaminophen (Tylenol 325mg Tab) 650 mg PO Q6H PRN PRN Reason: Fever >100.4 F Last Admin: 03/09/18 09:45 Dose: 650 mg Enoxaparin Sodium (Lovenox) 40 mg SC DAILY ANIBAL PRN Reason: Protocol Last Admin: 03/08/18 16:30 Dose: 40 mg Famotidine (Pepcid) 20 mg PO HS ANIBAL Last Admin: 03/08/18 21:24 Dose: 20 mg Meropenem (Merrem Iv 1 Gm Premix) 50 mls @ 100 mls/hr IVPB Q8 ANIBAL PRN Reason: Protocol Last Admin: 03/09/18 05:19 Dose: 100 mls/hr Ibuprofen (Motrin Tab) 400 mg PO Q6H PRN PRN Reason: Fever >100.4 F Last Admin: 03/08/18 23:01 Dose: 400 mg Morphine Sulfate (Morphine) 2 mg IVP Q4H PRN PRN Reason: Pain, severe (8-10) Last Admin: 03/09/18 08:54 Dose: 2 mg Ondansetron HCl (Zofran Inj) 4 mg IVP Q12H PRN PRN Reason: Nausea/Vomiting Last Admin: 03/07/18 16:38 Dose: 4 mg Pantoprazole Sodium (Protonix Ec Tab) 40 mg PO 0600 ANIBAL Last Admin: 03/08/18 05:41 Dose: 40 mg - Labs Labs: 03/09/18 08:30 03/09/18 08:30 - Constitutional Appears: Well, No Acute Distress - Head Exam Head Exam: ATRAUMATIC, NORMOCEPHALIC - Respiratory Exam Respiratory Exam: Clear to Ausculation Bilateral, NORMAL BREATHING PATTERN. absent: Rales, Rhonchi, Wheezes - Cardiovascular Exam Cardiovascular Exam: REGULAR RHYTHM, +S1, +S2 - GI/Abdominal Exam GI & Abdominal Exam: Soft. absent: Distended, Tenderness - Back Exam Back Exam: paraspinal tenderness Additional comments: hypertonicity of right paraspinal muscles - Neurological Exam Neurological Exam: Alert, Awake, Oriented x3 Assessment and Plan - Assessment and Plan (Free Text) Assessment: 42 yo F with PMH migraines presenting with right sided flank tenderness, dysurea , urinary frequency consistent with pyelonephritis. Plan: Pyelonephritis - CT abdomen pelvis: R perinephric stranding (performed outside, ordered by PMD ) - WBC 7.5 - Tmax 100.3 F - Meropenem 1gm as per ID - d/c IVF - Alternating Tylenol/Ibuprofen for fever, PRN - UA: +LE , + bactera, + blood - UCx: E. Coli, sensitive to merem - BCx negative - CT abd/pelvis ordered to r/o nephrolithiasis: f/u reading - Morphine prn for pain - ID consulted, Dr. Rinaldi, recs appreciated Chest Pain - non reproducible, non radiating on L side - associated with shortness of breath - patient ambulating - tachycardic at 111 - Sat 94% on NC - CT chest w/o contrast: f/u reading - V/Q scan r/o PE: f/u reading - continue to monitor PPx: GI ppx: pepcid DVT ppx: SCDs, lovenox 40 Case reviewed and discussed with Dr Ku <Chelsea Ku R - Last Filed: 03/10/18 13:52> Objective - Vital Signs/Intake and Output Vital Signs (last 24 hours): Temp Pulse Resp BP Pulse Ox 100.5 F H 93 H 20 127/80 97 03/10/18 08:00 03/10/18 08:00 03/10/18 08:00 03/10/18 10:07 03/10/18 08:00 Intake and Output: 03/10/18 03/10/18 06:59 18:59 Intake Total 220 Balance 220 - Medications Medications: Current Medications Acetaminophen (Tylenol 325mg Tab) 650 mg PO Q6H PRN PRN Reason: Fever >100.4 F Last Admin: 03/09/18 09:45 Dose: 650 mg Enoxaparin Sodium (Lovenox) 40 mg SC DAILY ANIBAL PRN Reason: Protocol Last Admin: 03/10/18 10:07 Dose: 40 mg Famotidine (Pepcid) 20 mg PO HS [facility] Last Admin: 03/09/18 21:42 Dose: 20 mg Furosemide (Lasix) 20 mg IVP Q12 ANIBAL Last Admin: 03/10/18 10:07 Dose: 20 mg Meropenem (Merrem Iv 1 Gm Premix) 50 mls @ 100 mls/hr IVPB Q8 ANIBAL PRN Reason: Protocol Last Admin: 03/10/18 05:53 Dose: 100 mls/hr Levofloxacin/Dextrose (Levaquin 500mg) 500 mg in 100 mls @ 100 mls/hr IVPB 2200 ANIBAL PRN Reason: Protocol Ibuprofen (Motrin Tab) 400 mg PO Q6H PRN PRN Reason: Fever >100.4 F Last Admin: 03/10/18 06:04 Dose: 400 mg Lactobacillus Acidophilus (Bacid Acidophilus) 1 cap PO BID ANIBAL Morphine Sulfate (Morphine) 2 mg IVP Q4H PRN PRN Reason: Pain, severe (8-10) Last Admin: 03/09/18 08:54 Dose: 2 mg Ondansetron HCl (Zofran Inj) 4 mg IVP Q12H PRN PRN Reason: Nausea/Vomiting Last Admin: 03/07/18 16:38 Dose: 4 mg Pantoprazole Sodium (Protonix Ec Tab) 40 mg PO 0600 ANIBAL Last Admin: 03/10/18 05:53 Dose: Not Given - Labs Labs: 03/10/18 07:30 03/10/18 07:30 Attending/Attestation - Attestation I have personally seen and examined this patient.: Yes I have fully participated in the care of the patient.: Yes I have reviewed all pertinent clinical information, including history, physical exam and plan: Yes Notes (Text): Patient seen and examined by me at 9:35 AM with resident 03/09/18. Case including HPI, physical exam, and assessment and plan discussed with resident. Agree with above with following additions/corrections. Patient is a 42-year-old female with no significant past medical history that presented to emergency room with 2-3 days of right flank pain associated with nausea. Patient states she is feeling ok. Complains of dysuria. Patient also feels short of breath and is having to use oxygen via nasal cannula. Patient states she has also developed a cough with yellow sputum over night. Patient had left sided chest pain and right flank pain earlier which seems to have resolved. She denies any current chest pain or palpitations. No headaches or dizziness. No nausea, vomiting, or abdominal pain. No fevers or chills. Last bowel movement was this AM. Physical exam: Gen: Awake and alert sitting up in bed in no acute distress. HEENT: Normocephalic, atraumatic. Extraocular muscles intact, pupils equal reactive. No scleral icterus. Oropharynx is pink and moist. Neck is supple. Cardiovascular: Tachycardic S1, S2. No murmurs, rubs, or gallops appreciated Pulmonary: Decreased breath sounds. No rhonchi, rales, or wheezing appreciated Gastrointestinal: Soft, nontender, nondistended. Positive bowel sounds all 4 quadrants, no guarding. Musculoskeletal: Moves all extremities. No calf tenderness. Mild lower extremity edema. Central nervous system: AAO x 3. Dermatologic: Skin warm and dry Assessment and plan: Patient is a 42-year-old female with no significant past medical history that presented to emergency room with 2-3 days of right flank pain associated with nausea. 1. Right sided pyelonephritis. CT abdomen and pelvis on 03/05/2018 per radiologist showed minimal perinephric stranding around the right kidney which could be secondary to pyelonephritis, there is no evidence of hydronephrosis, there is a small mount of fluid in the pelvis and the right pericolic gutter. ID following, recommendations appreciated. Continue meropenem. Repeat CT abdomen pelvis ordered. Continue pain medications. Urine culture positive for Escherichia coli. 2. Shortness of breath. Hypoxemia. Cough. We'll order chest CT. Possible fluid overload. Possible pneumonia. IV fluids stopped. VQ scan ordered to rule out PE. 3. Chest pain. Troponins within normal limits. Follow-up VQ scan. 4. Anemia. H&H stable. Patient currently asymptomatic. Continue to monitor CBC. 5. GI/DVT prophylaxis. Protonix and Lovenox 6. Patient is a full code Case was discussed in detail with patient and patient's at bedside regarding current diagnosis and treatment plan.
--- NOTE | 2018-03-09 14:13 | PN ---
Copied To: Cl Aguilar MD Attending MD: Cl Aguilar MD DATE: 03/09/2018 SUBJECTIVE: The patient is in bed, in no acute distress. She is still having pain and she still has a temperature this morning. PHYSICAL EXAMINATION: VITAL SIGNS: On exam, temperature is 100.3, blood pressure is 109/70, respiratory 20, heart rate of 92. HEENT: Unremarkable. NECK: Supple. LUNGS: Have decreased breath sounds. HEART: Normal S1, S2. ABDOMEN: Soft. LABORATORY DATA: Laboratory examination reveals a white count of 7.5, hemoglobin of 10, platelets of 154. BUN of 5, creatinine of 0.7 and urinalysis is noted with 5-10 wbc's. Blood cultures are no growth at 24 hours. Urine culture has a gram-negative geoffrey and review of orders, the patient is on meropenem and the patient did not have imaging of the abdomen and pelvis. The patient did have a chest x-ray which is negative. ASSESSMENT AND PLAN: A 42-year-old female seen earlier today with still pain and fevers and the patient with right flank pain associated with nausea, fevers and chills and what appears to be a sepsis with right-sided pyelonephritis. I will order a CAT scan of the abdomen and pelvis and gram-negative geoffrey, pyelonephritis, to rule out either renal stones and/or abscess. The patient on meropenem with gram-negative rods in the urine, continues to have fevers and pain. Concerned about a collection versus stone. CT of the chest has been ordered because of the hypoxia. We will follow with you. Cl Aguilar MD
--- NOTE | 2018-03-09 17:13 | CT ---
Date of service: 03/09/2018 PROCEDURE: CT Chest, Abdomen and Pelvis without intravenous contrast HISTORY: Pain and fever, with pylo r/o stones or collection COMPARISON: CT abdomen and pelvis from 03/05/2018. TECHNIQUE: CT scan of the chest, abdomen and pelvis was performed without administration of intravenous contrast. Oral contrast was administered. Coronal and sagittal reformatted images were obtained. Radiation dose: Total exam DLP = mGy-cm. This CT exam was performed using one or more of the following dose reduction techniques: Automated exposure control, adjustment of the mA and/or kV according to patient size, and/or use of iterative reconstruction technique. FINDINGS: CT CHEST WITHOUT CONTRAST: LUNGS: There is multifocal pneumonia in the right lower lobe, lingula and left lower lobe. There are no endobronchial lesions. MEDIASTINUM: The heart is normal in size. Trace pericardial effusion. The aorta is not dilated LYMPH NODES: No bulky mediastinal adenopathy. PLEURA: Bilateral large pleural effusions, larger on the right. No pneumothorax. BONES: Within normal limits. OTHER FINDINGS: None. CT ABDOMEN AND PELVIS: LIVER: Normal in size. No gross lesion or ductal dilatation. GALLBLADDER AND BILE DUCTS: No calcified gallstones. PANCREAS: Normal in sinus. No gross lesion or ductal dilatation. SPLEEN: Normal in size. ADRENALS: No discrete nodule. KIDNEYS AND URETERS: There is mild enlargement of the right kidney and mild right hydronephrosis. The left kidney is normal in size without hydronephrosis. No nephrolithiasis or perinephric fat stranding. Please note evaluation of pyelonephritis is not possible in the absence of IV contrast. VASCULATURE: No aortic aneurysm. BOWEL: The small bowel loops are normal in caliber. There is moderate amount of stool scattered throughout the colon. No bowel dilatation or obstruction. APPENDIX: Normal appendix. PERITONEUM: There is small pelvic ascites. No free fluid. No free air. LYMPH NODES: No enlarged lymph nodes. BLADDER: The urinary bladder is distended. There is apparent mild circumferential mural thickening of the bladder wall. REPRODUCTIVE: The uterus is normal in size. BONES: No acute fracture. Within normal limits for the patient's age. OTHER FINDINGS: There is diffuse anasarca. IMPRESSION: 1. Please note acute pyelonephritis cannot be evaluated in the absence of intravenous contrast. Mild edema and enlargement in the right kidney and mild right hydronephrosis without evidence for nephrolithiasis, obstructive uropathy or arm perinephric fat stranding. 2. Multifocal pneumonia in the right lower lobe, lingula and left lower lobe, large bilateral pleural effusions, worse on the right. 3. Small pelvic ascites. 4. Apparent circumferential mural thickening of this urinary bladder is nonspecific and could be related to under cyst tension however acute cystitis cannot be excluded. Please correlate with urine analysis.
[2018-03-09] MEDS ORDERED: levoFLOXacin 500 mg in D5W 500 MG/100 ML BAG IVPB SCH (21:00)
[2018-03-10] MEDS: Meropenem IV 1 gm in NS 50 ML IVPB SCH ×3 (05:53→21:24)
[2018-03-10] MEDS: Pantoprazole 40 mg EC Tab PO SCH (05:53)
[2018-03-10 07:54] LABS: BASO # 0.1 K/mm3 (0.0-2.0); BASO % 1.6 % (0.0-3.0); EOS # 0.2 (0.0-0.7); EOS % 2.9 % (1.5-5.0); GRAN # 3.43 (1.4-6.5); GRAN % 54.9 % (50.0-68.0); HEMOGLOBIN 9.7 g/dL (12.0-16.0); LYMPH # 1.7 (1.2-3.4); LYMPH % 27.5 % (22.0-35.0); MEAN CELL VOLUME 83.1 fl (80.0-105.0); MEAN CORPUSCULAR HEMOGLOBIN 29.8 pg (25.0-35.0); MEAN CORPUSCULAR HGB CONC 35.8 g/dl (31.0-37.0); MEAN PLATELET VOLUME 10.6 fl (7.0-11.0); MONO # 0.8 (0.1-0.6); MONO % 13.1 % (1.0-6.0); RBC 3.26 10^6/uL (3.5-6.1); RED CELL DISTRIBUTION WIDTH 14.1 % (11.5-14.5); WHITE BLOOD COUNT 6.3 10^3/ul (4.5-11.0)
[2018-03-10 08:40] LABS: ALBUMIN 3.2 g/dL (3.0-4.8); ALT/SGPT 50 U/L (7-56); AST/SGOT 38 U/L (14-36); BLOOD UREA NITROGEN 4 mg/dL (7-21); GFR NON-AFRICAN AMERICAN > 60
[2018-03-10] MEDS: Lactobacillus Acidophilus 500 MU Cap PO SCH ×2 (10:00→17:52)
[2018-03-10] MEDS: Enoxaparin 40 mg Syringe SC SCH (10:07)
--- NOTE | 2018-03-10 14:30 | CP.PCM.PN ---
<Marielena Lubin - Last Filed: 03/10/18 16:03> Subjective - Date & Time of Evaluation Date of Evaluation: 03/10/18 Time of Evaluation: 14:28 - Subjective Subjective: Marielena Lubin PGY1 Progress Note for Dr. Ku Ms. Bauer was examined at bedside this morning. She reported some colicky abdominal pain and some diarrhea that was black. She reports improvement of shortness of breath and abdominal and chest pain. She denies any dizziness, headache, nausea or vomiting. Objective - Vital Signs/Intake and Output Vital Signs (last 24 hours): Temp Pulse Resp BP Pulse Ox 100.5 F H 93 H 20 127/80 97 03/10/18 08:00 03/10/18 08:00 03/10/18 08:00 03/10/18 10:07 03/10/18 08:00 Intake and Output: 03/10/18 03/10/18 06:59 18:59 Intake Total 220 Balance 220 - Medications Medications: Current Medications Acetaminophen (Tylenol 325mg Tab) 650 mg PO Q6H PRN PRN Reason: Fever >100.4 F Last Admin: 03/09/18 09:45 Dose: 650 mg Enoxaparin Sodium (Lovenox) 40 mg SC DAILY ANIBAL PRN Reason: Protocol Last Admin: 03/10/18 10:07 Dose: 40 mg Famotidine (Pepcid) 20 mg PO HS ANIBAL Last Admin: 03/09/18 21:42 Dose: 20 mg Furosemide (Lasix) 20 mg IVP Q12 ANIBAL Last Admin: 03/10/18 10:07 Dose: 20 mg Meropenem (Merrem Iv 1 Gm Premix) 50 mls @ 100 mls/hr IVPB Q8 ANIBAL PRN Reason: Protocol Last Admin: 03/10/18 05:53 Dose: 100 mls/hr Levofloxacin/Dextrose (Levaquin 500mg) 500 mg in 100 mls @ 100 mls/hr IVPB 2200 ANIBAL PRN Reason: Protocol Ibuprofen (Motrin Tab) 400 mg PO Q6H PRN PRN Reason: Fever >100.4 F Last Admin: 03/10/18 06:04 Dose: 400 mg Lactobacillus Acidophilus (Bacid Acidophilus) 1 cap PO BID ANIBAL Morphine Sulfate (Morphine) 2 mg IVP Q4H PRN PRN Reason: Pain, severe (8-10) Last Admin: 03/09/18 08:54 Dose: 2 mg Ondansetron HCl (Zofran Inj) 4 mg IVP Q12H PRN PRN Reason: Nausea/Vomiting Last Admin: 03/07/18 16:38 Dose: 4 mg Pantoprazole Sodium (Protonix Ec Tab) 40 mg PO 0600 ANIBAL Last Admin: 03/10/18 05:53 Dose: Not Given - Labs Labs: 03/10/18 07:30 03/10/18 07:30 - Constitutional Appears: Well, No Acute Distress - Head Exam Head Exam: ATRAUMATIC, NORMOCEPHALIC - ENT Exam ENT Exam: Mucous Membranes Moist - Respiratory Exam Respiratory Exam: Decreased Breath Sounds, NORMAL BREATHING PATTERN. absent: Rhonchi, Wheezes, Respiratory Distress, Stridor - Cardiovascular Exam Cardiovascular Exam: REGULAR RHYTHM, +S1, +S2. absent: Gallop, Rubs, Murmur - GI/Abdominal Exam GI & Abdominal Exam: Soft, Tenderness, Normal Bowel Sounds. absent: Distended, Firm - Extremities Exam Extremities Exam: Normal Inspection - Neurological Exam Neurological Exam: Alert, Awake - Psychiatric Exam Psychiatric exam: Normal Affect, Normal Mood - Skin Skin Exam: Normal Color Assessment and Plan - Assessment and Plan (Free Text) Assessment: 42 yo F with PMH migraines presenting with right sided flank tenderness, dysurea , urinary frequency consistent with pyelonephritis. Plan: Pyelonephritis - WBC 6.3 - Tmax 100.5F - Meropenem 1gm as per ID - Alternating Tylenol/Ibuprofen for fever, PRN - UA: +LE , + bactera, + blood - UCx: E. Coli, sensitive to merem - BCx negative - CT abd/pelvis: mild edema, enlargement in R kidney and mild R hydronephrosis without nephrolithiasis, obstructive uropathy or perinephric fat stranding - Morphine prn for pain - ID consulted, yossi Arora appreciated Pneumonia - CT abd/pelvis: multifocal pneumonia in RLL, lingula, and LLL, large b/l pleural effusions worse on right - WBC 6.3 - Tmax 100.5F - continue meropenem - ID consulted, yossi Arora appreciated - continue to monitor Pleural Effusion - CT abd/pelvis: multifocal pneumonia in RLL, lingula, and LLL, large b/l pleural effusions worse on right - d/c fluids - start lasix 20 BID - incentive spirometry - f/u CXR tomorrow, ordered - consider thoracentesis tomorrow if not improved Diarrhea - pt reported black, watery diarrhea today - possible etiology: antibiotic treatment - WBC 6.3 - Tmax 100.5F - start lactobacillus BID - monitor Chest Pain - resolved from yesterday - tachycardic at 103 - Sat 97% on NC - V/Q scan r/o PE: f/u reading - continue to monitor PPx: GI ppx: pepcid DVT ppx: SCDs, lovenox 40 Case reviewed and discussed with Dr Ku <Chelsea Ku - Last Filed: 03/11/18 08:58> Objective - Vital Signs/Intake and Output Vital Signs (last 24 hours): Temp Pulse Resp BP Pulse Ox 98 F 73 18 105/70 98 03/11/18 08:03 03/11/18 08:03 03/11/18 08:03 03/11/18 08:03 03/11/18 08:03 - Medications Medications: Current Medications Acetaminophen (Tylenol 325mg Tab) 650 mg PO Q6H PRN PRN Reason: Fever >100.4 F Last Admin: 03/09/18 09:45 Dose: 650 mg Enoxaparin Sodium (Lovenox) 40 mg SC DAILY ANIBAL PRN Reason: Protocol Last Admin: 03/10/18 10:07 Dose: 40 mg Famotidine (Pepcid) 20 mg PO HS ANIBAL Last Admin: 03/10/18 21:25 Dose: 20 mg Furosemide (Lasix) 20 mg IVP Q12 ANIBAL Last Admin: 03/10/18 21:19 Dose: 20 mg Meropenem (Merrem Iv 1 Gm Premix) 50 mls @ 100 mls/hr IVPB Q8 ANIBAL PRN Reason: Protocol Last Admin: 03/11/18 05:15 Dose: 100 mls/hr Levofloxacin/Dextrose (Levaquin 500mg) 500 mg in 100 mls @ 100 mls/hr IVPB 2200 ANIBAL PRN Reason: Protocol Last Admin: 03/10/18 22:00 Dose: 100 mls/hr Ibuprofen (Motrin Tab) 400 mg PO Q6H PRN PRN Reason: Fever >100.4 F Last Admin: 03/11/18 01:08 Dose: 400 mg Lactobacillus Acidophilus (Bacid Acidophilus) 1 cap PO BID ANIBAL Last Admin: 03/10/18 17:52 Dose: 1 cap Morphine Sulfate (Morphine) 2 mg IVP Q4H PRN PRN Reason: Pain, severe (8-10) Last Admin: 03/09/18 08:54 Dose: 2 mg Ondansetron HCl (Zofran Inj) 4 mg IVP Q12H PRN PRN Reason: Nausea/Vomiting Last Admin: 03/11/18 05:54 Dose: 4 mg Pantoprazole Sodium (Protonix Ec Tab) 40 mg PO 0600 ANIBAL Last Admin: 03/11/18 05:15 Dose: 40 mg - Labs Labs: 03/11/18 07:00 03/11/18 07:00 Attending/Attestation - Attestation I have personally seen and examined this patient.: Yes I have fully participated in the care of the patient.: Yes I have reviewed all pertinent clinical information, including history, physical exam and plan: Yes Notes (Text): Patient seen and examined by me at 9:55 AM with resident 03/10/18. Case including HPI, physical exam, and assessment and plan discussed with resident. Agree with above with following additions/corrections. Patient is a 42-year-old female with no significant past medical history that presented to emergency room with 2-3 days of right flank pain associated with nausea. Patient states she is feels better today. Patient is sitting up in chair. States that shortness of breath has improved. Still with some dysuria. States she had a bowel movement that appeared to be "mucousy." She denies any chest pain or palpitations. No headaches or dizziness. No nausea, vomiting, or abdominal pain. Patient is febrile today. Denies any chills. Physical exam: Gen: Awake and alert sitting up in bed in no acute distress. HEENT: Normocephalic, atraumatic. Extraocular muscles intact, pupils equal reactive. No scleral icterus. Oropharynx is pink and moist. Neck is supple. Cardiovascular: Tachycardic S1, S2. No murmurs, rubs, or gallops appreciated Pulmonary: Decreased breath sounds. No rhonchi, rales, or wheezing appreciated Gastrointestinal: Soft, nontender, nondistended. Positive bowel sounds all 4 quadrants, no guarding. Musculoskeletal: Moves all extremities. No calf tenderness. Trace lower extremity edema. Central nervous system: AAO x 3. Dermatologic: Skin warm and dry Assessment and plan: Patient is a 42-year-old female with no significant past medical history that presented to emergency room with 2-3 days of right flank pain associated with nausea. 1. Right sided pyelonephritis. Urine culture now positive for ESBL. ID following, recommendations appreciated. Continue meropenem. No leukocytosis. Patient is febrile. Repeat chest CT/abdomen/pelvis per radiologist shows mild edema and enlargement the right kidney and mild right hydronephrosis without evidence of nephrolithiasis, obstructive uropathy or perinephric fat stranding; small pelvic ascites, apparent circumferential mural thickening of the urinary bladder which is nonspecific and could be related to under cyst tension however acute cystitis cannot be excluded . CT abdomen and pelvis on 03/05/2018 per radiologist showed minimal perinephric stranding around the right kidney which could be secondary to pyelonephritis, there is no evidence of hydronephrosis, there is a small mount of fluid in the pelvis and the right pericolic gutter. 2. Shortness of breath. Hypoxemia. Cough. Chest CT per radiologist shows multifocal pneumonia in the right lower lobe, lingula and left lower lobe, large bilateral pleural effusions worse on the right. Started on Lasix. Monitor I's and O's. Continue O2 via nasal cannula. ID following, recommendations appreciated. Patient placed on Levaquin. Repeat chest x-ray in the a.m. May need thoracentesis. 3. Chest pain. Resolved. Troponins within normal limits. Follow-up VQ scan results. 4. Anemia. H&H stable. Patient currently asymptomatic. Continue to monitor CBC. 5. GI/DVT prophylaxis. Protonix and Lovenox 6. Patient is a full code Case was discussed in detail with patient and patient's at bedside regarding current diagnosis and treatment plan.
--- NOTE | 2018-03-10 16:12 | PN ---
Copied To: Cl Aguilar MD Attending MD: Cl Aguilar MD DATE: 03/10/2018 SUBJECTIVE: The patient is seen in room 366, bed 1. The patient's sister is present at the bedside. Her is present at the bedside. She continues to have low- grade fever. However, overall, her right flank pain is greatly improved. She states she is doing much better. PHYSICAL EXAMINATION: VITAL SIGNS: Temperature is 100.5, respiratory rate of 20, heart rate of 93, was up to 103 and the blood pressure is 120/70. HEENT: Examination of HEENT is unremarkable. NECK: Supple. LUNGS: Have decreased breath sounds. HEART: Normal S1, S2. ABDOMEN: Soft, nontender. No rebound or guarding. No masses. LABORATORY DATA: Laboratory examination reveals a white count of 6.3, hemoglobin of 9, platelets of 185. Chemistries reveals BUN of 4, creatinine of 0.6 and urinalysis is noted and microbiology reveals E. Coli in the urine. It is ESBL E-coli sensitive to meropenem and Bactrim. Imaging reveals the patient had a CAT scan of the chest, abdomen and pelvis, which revealed multifocal pneumonia in right lower lobe, lingula, and left lower lobe large bilateral pleural effusions, worse on the right, small pelvic ascites and nonspecific bladder thickening, urinary bladder and acute cystitis and the patient had refused the contrast. There is mild enlargement of right kidney, mild right hydronephrosis. ASSESSMENT AND PLAN: A 42-year-old female originally from [facility] admitted with what appears to be sepsis with right-sided pyelonephritis with Escherichia coli, extended-spectrum beta-lactamase Escherichia coli and a community-acquired pneumonia and improving slowly. Currently on meropenem and Levaquin. Awaiting for urine for Legionella antigen and human immunodeficiency virus test and once the patient is afebrile for at least 24 hours, maybe able to switch to ertapenem 1 g daily to complete outpatient therapy with 10-14 days treatment for pyelonephritis with extended-spectrum beta-lactamase Escherichia coli. We will follow with you. Cl Aguilar MD [facility] # [id number]
[2018-03-10] MEDS ORDERED: levoFLOXacin 500 mg in D5W 500 MG/100 ML BAG IVPB SCH (22:00)
[2018-03-11] MEDS: Meropenem IV 1 gm in NS 50 ML IVPB SCH ×3 (05:15→22:37)
[2018-03-11] MEDS: Pantoprazole 40 mg EC Tab PO SCH (05:15)
[2018-03-11 07:50] LABS: BASO # 0.07 K/mm3 (0.0-2.0); BASO % 1.6 % (0.0-3.0); EOS # 0.3 (0.0-0.7); EOS % 7.2 % (1.5-5.0); GRAN # 1.73 (1.4-6.5); GRAN % 40.3 % (50.0-68.0); HEMOGLOBIN 9.8 g/dL (12.0-16.0); LYMPH # 1.6 (1.2-3.4); LYMPH % 37.1 % (22.0-35.0); MEAN CELL VOLUME 83.2 fl (80.0-105.0); MEAN CORPUSCULAR HEMOGLOBIN 28.8 pg (25.0-35.0); MEAN CORPUSCULAR HGB CONC 34.6 g/dl (31.0-37.0); MEAN PLATELET VOLUME 10.2 fl (7.0-11.0); MONO # 0.6 (0.1-0.6); MONO % 13.8 % (1.0-6.0); RBC 3.4 10^6/uL (3.5-6.1); RED CELL DISTRIBUTION WIDTH 14.1 % (11.5-14.5); WHITE BLOOD COUNT 4.3 10^3/ul (4.5-11.0)
[2018-03-11 08:06] LABS: ALB/GLOB RATIO 1.1 (1.1-1.8); ALBUMIN 3.4 g/dL (3.0-4.8); ALT/SGPT 48 U/L (7-56); AST/SGOT 44 U/L (14-36); BLOOD UREA NITROGEN 7 mg/dL (7-21); GFR NON-AFRICAN AMERICAN > 60
[2018-03-11] MEDS: Lactobacillus Acidophilus 500 MU Cap PO SCH ×2 (09:13→18:35)
[2018-03-11] MEDS: Enoxaparin 40 mg Syringe SC SCH (09:19)
--- NOTE | 2018-03-11 11:26 | NM ---
Date of service: 03/09/2018 COMPARISON: Chest CT 03/09/2018 TECHNIQUE: 30.0 mCi technetium 99-m DTPA 3.0 mCI technetium 99-m MAA administered intravenously. FINDINGS: VENTILATION COMPONENT: Normal. PERFUSION COMPONENT: Normal. The report concurs with the preliminary [facility] report IMPRESSION: Lowprobability ventilation perfusion scan for pulmonary embolism.
--- NOTE | 2018-03-11 13:28 | RAD ---
Date of service: 03/11/2018 HISTORY: sob COMPARISON: 03/06/2018 TECHNIQUE: Chest PA and lateral FINDINGS: LUNGS: No active pulmonary disease. PLEURA: Small pleural effusions CARDIOVASCULAR: Normal. OSSEOUS STRUCTURES: No significant abnormalities. VISUALIZED UPPER ABDOMEN: Normal. OTHER FINDINGS: None. IMPRESSION: Small pleural effusions
--- NOTE | 2018-03-11 16:48 | CP.PCM.PN ---
<Abdulaziz Arreaga - Last Filed: 03/11/18 18:40> Subjective - Date & Time of Evaluation Date of Evaluation: 03/11/18 Time of Evaluation: 07:00 - Subjective Subjective: Abdulaziz Arreaga PGY1 Progress Note for Dr. Ku Patient was seen and examined at bedside this morning. She is [place]an speaking. Interpretation was conducted by family member at bedside. Patient still endorses right sided abdominal pain but it has improved. She has a mild, non- productive cough and nausea. Denies chest pain, shortness of breath, numbness and tingling of extremities, vomiting, diarrhea. She does not have frequency, urgency, and dysuria. She was afebrile overnight. Otherwise, no changes. A full 12 point ROS was conducted and unremarkable except as stated above. Objective - Vital Signs/Intake and Output Vital Signs (last 24 hours): Temp Pulse Resp BP Pulse Ox 97.7 F 79 19 101/68 99 03/11/18 16:41 03/11/18 16:41 03/11/18 16:41 03/11/18 16:41 03/11/18 16:41 - Medications Medications: Current Medications Acetaminophen (Tylenol 325mg Tab) 650 mg PO Q6H PRN PRN Reason: Fever >100.4 F Last Admin: 03/09/18 09:45 Dose: 650 mg Enoxaparin Sodium (Lovenox) 40 mg SC DAILY ANIBAL PRN Reason: Protocol Last Admin: 03/11/18 09:19 Dose: 40 mg Famotidine (Pepcid) 20 mg PO HS ANIBAL Last Admin: 03/10/18 21:25 Dose: 20 mg Furosemide (Lasix) 20 mg IVP Q12 ANIBAL Last Admin: 03/11/18 09:13 Dose: 20 mg Meropenem (Merrem Iv 1 Gm Premix) 50 mls @ 100 mls/hr IVPB Q8 ANIBAL PRN Reason: Protocol Last Admin: 03/11/18 14:38 Dose: 100 mls/hr Levofloxacin/Dextrose (Levaquin 500mg) 500 mg in 100 mls @ 100 mls/hr IVPB 2200 ANIBAL PRN Reason: Protocol Last Admin: 03/10/18 22:00 Dose: 100 mls/hr Ibuprofen (Motrin Tab) 400 mg PO Q6H PRN PRN Reason: Fever >100.4 F Last Admin: 03/11/18 01:08 Dose: 400 mg Lactobacillus Acidophilus (Bacid Acidophilus) 1 cap PO BID [facility] Last Admin: 03/11/18 09:13 Dose: 1 cap Morphine Sulfate (Morphine) 2 mg IVP Q4H PRN PRN Reason: Pain, severe (8-10) Last Admin: 03/09/18 08:54 Dose: 2 mg Ondansetron HCl (Zofran Inj) 4 mg IVP Q12H PRN PRN Reason: Nausea/Vomiting Last Admin: 03/11/18 05:54 Dose: 4 mg Pantoprazole Sodium (Protonix Ec Tab) 40 mg PO 0600 [facility] Last Admin: 03/11/18 05:15 Dose: 40 mg - Labs Labs: 03/11/18 07:00 03/11/18 07:00 - Constitutional Appears: Well, No Acute Distress - Head Exam Head Exam: ATRAUMATIC, NORMAL INSPECTION, NORMOCEPHALIC - Eye Exam Eye Exam: EOMI, Normal appearance, PERRL Pupil Exam: NORMAL ACCOMODATION, PERRL - ENT Exam ENT Exam: Mucous Membranes Moist, Normal Exam - Neck Exam Neck Exam: Full ROM, Normal Inspection. absent: Lymphadenopathy - Respiratory Exam Respiratory Exam: Clear to Ausculation Bilateral, NORMAL BREATHING PATTERN. absent: Accessory Muscle Use, Chest Wall Tenderness, Rales, Rhonchi, Wheezes, Respiratory Distress, Stridor - Cardiovascular Exam Cardiovascular Exam: REGULAR RHYTHM, +S1, +S2. absent: Murmur - GI/Abdominal Exam GI & Abdominal Exam: Soft, Tenderness (Mild tenderness to palpation of the RLQ ) , Normal Bowel Sounds. absent: Distended, Guarding, Rigid - Extremities Exam Extremities Exam: Full ROM, Normal Capillary Refill, Normal Inspection. absent : Joint Swelling, Pedal Edema - Back Exam Back Exam: CVA tenderness (R) - Neurological Exam Neurological Exam: Alert, Awake, Oriented x3 Neuro motor strength exam: Left Upper Extremity: 5, Right Upper Extremity: 5, Left Lower Extremity: 5, Right Lower Extremity: 5 - Skin Skin Exam: Dry, Intact, Normal Color, Warm Assessment and Plan - Assessment and Plan (Free Text) Assessment: Patient is a 42 y/o F with PMHx of migraines who presented to the ED for 3 weeks of R-flank pain with associated nausea, dysuria, and foul odor with urination. She denied hematuria and increased frequency of urination. On Chest/ Abd/Pelvis CT, patient was found to have mild enlargement, edema, and hydronephrosis of the R-kidney without nephrolithiasis and obstructive uropathy. Multifocal pneumonia in right and left lower lobe with large bilateral pleural effusions. Patient is in the hospital for treatment of pyelonephritis. Plan: Pyelonephritis - Improved pain on physical exam - Positive CVA tenderness on R-side - WBC 4.3, trending down from 6.3 - Afebrile, no fevers overnight - c/w Meropenem 1gm - UA (03/06): +LE , + bactera, + blood - UCx (03/06): E. Coli, sensitive to merem - BCx negative - CT abd/pelvis (03/09): mild edema, enlargement in R kidney and mild R hydronephrosis without nephrolithiasis, obstructive uropathy or perinephric fat stranding. Multifocal pneumonia in R-low lobe, lingula, and L-low lobe, large bilateral pleural effusions. - c/w Morphine prn - f/u ID recs - PT; encourage ambulation Hospital Acquired Pneumonia (HAP) - CXR (03/11): small pleural effusion. - Improved pleural effusion; thoracentesis not necessary - CT abd/pelvis: multifocal pneumonia in RLL, lingula, and LLL, large b/l pleural effusions worse on right - c/w Levaquin - c/w lasix for pleural effusions - f/u ID recs - Legionella negative Chest Pain - resolved - [employer] for chest pain on 03/07; atypical in nature - Normal SaO2 - V/Q scan was negative for PE GI ppx: pepcid DVT ppx: SCDs, lovenox 40 Case was discussed and reviewed with Dr. Ku. <Chelsea Ku R - Last Filed: 03/12/18 07:32> Objective - Vital Signs/Intake and Output Vital Signs (last 24 hours): Temp Pulse Resp BP Pulse Ox 97.7 F 84 19 110/67 99 03/11/18 16:41 03/12/18 06:00 03/11/18 16:41 03/11/18 22:37 03/11/18 16:41 - Medications Medications: Current Medications Acetaminophen (Tylenol 325mg Tab) 650 mg PO Q6H PRN PRN Reason: Fever >100.4 F Last Admin: 03/09/18 09:45 Dose: 650 mg Enoxaparin Sodium (Lovenox) 40 mg SC DAILY [facility] PRN Reason: Protocol Last Admin: 03/11/18 09:19 Dose: 40 mg Famotidine (Pepcid) 20 mg PO HS [facility] Last Admin: 03/11/18 22:38 Dose: 20 mg Furosemide (Lasix) 20 mg IVP Q12 [facility] Last Admin: 03/11/18 22:37 Dose: 20 mg Meropenem (Merrem Iv 1 Gm Premix) 50 mls @ 100 mls/hr IVPB Q8 ANIBAL PRN Reason: Protocol Last Admin: 03/12/18 05:02 Dose: 100 mls/hr Ibuprofen (Motrin Tab) 400 mg PO Q6H PRN PRN Reason: Fever >100.4 F Last Admin: 03/11/18 01:08 Dose: 400 mg Lactobacillus Acidophilus (Bacid Acidophilus) 1 cap PO BID [facility] Last Admin: 03/11/18 18:35 Dose: 1 cap Levofloxacin (Levaquin) 500 mg PO DAILY [facility] PRN Reason: Protocol Morphine Sulfate (Morphine) 2 mg IVP Q4H PRN PRN Reason: Pain, severe (8-10) Last Admin: 03/09/18 08:54 Dose: 2 mg Ondansetron HCl (Zofran Inj) 4 mg IVP Q12H PRN PRN Reason: Nausea/Vomiting Last Admin: 03/11/18 05:54 Dose: 4 mg Pantoprazole Sodium (Protonix Ec Tab) 40 mg PO 0600 [facility] Last Admin: 03/12/18 05:01 Dose: 40 mg - Labs Labs: 03/11/18 07:00 03/11/18 07:00 Attending/Attestation - Attestation I have personally seen and examined this patient.: Yes I have fully participated in the care of the patient.: Yes I have reviewed all pertinent clinical information, including history, physical exam and plan: Yes Notes (Text): Patient seen and examined by me at 10:40AM with resident 03/11/18. Case including HPI, physical exam, and assessment and plan discussed with resident. Agree with above with following additions/corrections. Patient is a 42-year-old female with no significant past medical history that presented to emergency room with 2-3 days of right flank pain associated with nausea. Patient states she is feeling better. Patient is ambulating. Shortness of breath is much better. Dysuria has resolved. Still with mild right lower quadrant abdominal pain and right flank pain. No diarrhea today. She denies any chest pain or palpitations. No headaches or dizziness. No nausea or vomiting. Patient is afebrile today. Denies any chills. Physical exam: Gen: Awake and alert sitting up in bed in no acute distress. HEENT: Normocephalic, atraumatic. Extraocular muscles intact, pupils equal reactive. No scleral icterus. Oropharynx is pink and moist. Neck is supple. Cardiovascular: Regular rhythm. Normal S1, S2. No murmurs, rubs, or gallops appreciated Pulmonary: Normal respiratory effort. Improved breath sounds. No rhonchi, rales, or wheezing appreciated Gastrointestinal: Soft, positive mild right lower quadrant tenderness with deep palpation, nondistended. Positive bowel sounds all 4 quadrants, no guarding. Musculoskeletal: Moves all extremities. No calf tenderness. No edema appreciated. Positive mild right CVA tenderness. Central nervous system: AAO x 3. Dermatologic: Skin warm and dry Assessment and plan: Patient is a 42-year-old female with no significant past medical history that presented to emergency room with 2-3 days of right flank pain associated with nausea. 1. Right sided pyelonephritis. Urine culture positive for ESBL. ID following, recommendations appreciated. Continue meropenem. No leukocytosis. Patient afebrile today. Repeat chest CT/abdomen/pelvis per radiologist shows mild edema and enlargement the right kidney and mild right hydronephrosis without evidence of nephrolithiasis, obstructive uropathy or perinephric fat stranding; small pelvic ascites, apparent circumferential mural thickening of the urinary bladder which is nonspecific and could be related to under cyst tension however acute cystitis cannot be excluded . CT abdomen and pelvis on 03/05/2018 per radiologist showed minimal perinephric stranding around the right kidney which could be secondary to pyelonephritis, there is no evidence of hydronephrosis, there is a small mount of fluid in the pelvis and the right pericolic gutter. 2. Multifocal pneumonia on chest CT. Continue Levaquin and Meropenem. ID following, recommendations appreciated 3. Bilateral pleural effusions seen on CT. Continue Lasix. Clincially improved. Follow up chest xray. 4. Shortness of breath. Hypoxemia. Cough. Improved. Secondary to #2 and #3. 5. Chest pain. Resolved. Troponins within normal limits. VQ scan low probability for PE 6. Anemia. H&H stable. Patient currently asymptomatic. Continue to monitor CBC. 7. GI/DVT prophylaxis. Protonix and Lovenox 8. Patient is a full code Case was discussed in detail with patient regarding current diagnosis and treatment plan.
--- NOTE | 2018-03-11 23:52 | PN ---
Copied To: Cl Aguilar MD Attending MD: Cl Aguilar MD DATE: 03/11/2018 SUBJECTIVE: The patient is in bed, in no acute distress, nontoxic. PHYSICAL EXAMINATION: VITAL SIGNS: On exam, temperature is 98 and blood pressure is 101/60, respiratory of 18, heart rate of 79. HEENT: Examination of HEENT is unremarkable. NECK: Supple. LUNGS: Have decreased breath sounds. HEART: Normal S1, S2. ABDOMEN: Soft, nontender. LABORATORY DATA: Laboratory examination reveals the patient's white count of 4.3, hemoglobin of 9, platelets of 232. Chemistries are noted and the urinalysis is noted and urine for Legionella is negative. HIV is negative. Review of orders reveals the patient to be on Levaquin and meropenem. The patient had a chest x-ray. No active pulmonary disease is noted. ASSESSMENT AND PLAN: A 42 years old, originally from [facility], appears to have sepsis with right-sided pyelonephritis with Escherichia coli which is extended-spectrum beta-lactamase Escherichia coli and a community-acquired pneumonia, improving on meropenem and Levaquin. Will need 10-14 days of meropenem and today is day #5 of 10-14 days of meropenem and would complete with p.o. Levaquin.. Today is day #3 of Levaquin, would complete 5 days of Levaquin. Cl Aguilar MD
[2018-03-12] MEDS: Pantoprazole 40 mg EC Tab PO SCH (05:01)
[2018-03-12] MEDS: Meropenem IV 1 gm in NS 50 ML IVPB SCH ×3 (05:02→21:22)
[2018-03-12 07:18] LABS: BASO # 0.04 K/mm3 (0.0-2.0); BASO % 0.6 % (0.0-3.0); EOS # 0.4 (0.0-0.7); EOS % 5.2 % (1.5-5.0); GRAN # 3.25 (1.4-6.5); GRAN % 48.2 % (50.0-68.0); HEMOGLOBIN 12.3 g/dL (12.0-16.0); LYMPH # 2.5 (1.2-3.4); LYMPH % 36.9 % (22.0-35.0); MEAN CELL VOLUME 84.1 fl (80.0-105.0); MEAN CORPUSCULAR HGB CONC 35.7 g/dl (31.0-37.0); MEAN PLATELET VOLUME 9.9 fl (7.0-11.0); MONO # 0.6 (0.1-0.6); MONO % 9.1 % (1.0-6.0); RBC 4.1 10^6/uL (3.5-6.1); RED CELL DISTRIBUTION WIDTH 14.3 % (11.5-14.5); WHITE BLOOD COUNT 6.7 10^3/ul (4.5-11.0)
[2018-03-12 07:32] LABS: ALB/GLOB RATIO 1.1 (1.1-1.8); ALBUMIN 4.1 g/dL (3.0-4.8); ALT/SGPT 71 U/L (7-56); AST/SGOT 85 U/L (14-36); BLOOD UREA NITROGEN 11 mg/dL (7-21); CALCIUM 9.5 mg/dL (8.4-10.5); GFR NON-AFRICAN AMERICAN > 60
--- NOTE | 2018-03-12 09:00 | CP.PCM.PN ---
Subjective - Date & Time of Evaluation Date of Evaluation: 03/12/18 Time of Evaluation: 09:00 - Subjective Subjective: PGY3 ID Progress note for Dr. Aguilar Objective - Vital Signs/Intake and Output Vital Signs (last 24 hours): Temp Pulse Resp BP Pulse Ox 98 F 82 20 93/60 L 97 03/12/18 08:17 03/12/18 08:17 03/12/18 08:17 03/12/18 08:17 03/12/18 08:17 - Medications Medications: Current Medications Acetaminophen (Tylenol 325mg Tab) 650 mg PO Q6H PRN PRN Reason: Fever >100.4 F Last Admin: 03/09/18 09:45 Dose: 650 mg Enoxaparin Sodium (Lovenox) 40 mg SC DAILY [facility] PRN Reason: Protocol Last Admin: 03/11/18 09:19 Dose: 40 mg Famotidine (Pepcid) 20 mg PO HS [facility] Last Admin: 03/11/18 22:38 Dose: 20 mg Furosemide (Lasix) 20 mg IVP Q12 [facility] Last Admin: 03/11/18 22:37 Dose: 20 mg Meropenem (Merrem Iv 1 Gm Premix) 50 mls @ 100 mls/hr IVPB Q8 [facility] PRN Reason: Protocol Last Admin: 03/12/18 05:02 Dose: 100 mls/hr Ibuprofen (Motrin Tab) 400 mg PO Q6H PRN PRN Reason: Fever >100.4 F Last Admin: 03/11/18 01:08 Dose: 400 mg Lactobacillus Acidophilus (Bacid Acidophilus) 1 cap PO BID [facility] Last Admin: 03/11/18 18:35 Dose: 1 cap Levofloxacin (Levaquin) 500 mg PO DAILY [facility] PRN Reason: Protocol Morphine Sulfate (Morphine) 2 mg IVP Q4H PRN PRN Reason: Pain, severe (8-10) Last Admin: 03/09/18 08:54 Dose: 2 mg Ondansetron HCl (Zofran Inj) 4 mg IVP Q12H PRN PRN Reason: Nausea/Vomiting Last Admin: 03/11/18 05:54 Dose: 4 mg Pantoprazole Sodium (Protonix Ec Tab) 40 mg PO 0600 [facility] Last Admin: 03/12/18 05:01 Dose: 40 mg - Labs Labs: 03/12/18 07:00 08/28/18 07:00
[2018-03-12] MEDS ORDERED: levoFLOXacin 500 MG TAB PO SCH (10:00)
--- NOTE | 2018-03-12 10:21 | RAD ---
Date of service: 03/12/2018 HISTORY: pleural effusion COMPARISON: No prior. TECHNIQUE: Chest PA and lateral FINDINGS: LUNGS: No active pulmonary disease. PLEURA: Improvement in small pleural effusions. CARDIOVASCULAR: Normal. OSSEOUS STRUCTURES: No significant abnormalities. VISUALIZED UPPER ABDOMEN: Normal. OTHER FINDINGS: None. IMPRESSION: No active disease. Improved small pleural effusions
[2018-03-12] MEDS: Lactobacillus Acidophilus 500 MU Cap PO SCH ×2 (11:24→17:33)
[2018-03-12] MEDS: Enoxaparin 40 mg Syringe SC SCH (11:26)
--- NOTE | 2018-03-12 12:50 | PN ---
Copied To: Cl Aguilar MD Attending MD: Cl Aguilar MD DATE: 03/12/2018 SUBJECTIVE: The patient is in bed, in no acute distress, nontoxic. PHYSICAL EXAMINATION: VITAL SIGNS: Temperature is 98, blood pressure is 93/60, respiratory rate 20, heart rate of 80. HEENT: Examination of HEENT is unremarkable. NECK: Supple. LUNGS: Have decreased breath sounds. HEART: Normal S1, S2. ABDOMEN: Soft, nontender. LABORATORY DATA: Laboratory examination reveals the white count is 6.7, hemoglobin of 12, platelets of 375. Chemistries reveals a BUN of 11, creatinine of 0.7. Urinalysis is noted and serology is urine for Legionella is negative. HIV is negative. LFTs are mildly elevated and microbiology as noted. Chest x-ray is no active disease. ASSESSMENT AND PLAN: A 42-year-old female originally from [facility] have sepsis with right-sided pyelonephritis with Escherichia coli with extended-spectrum beta-lactamase Escherichia coli and community-acquired pneumonia, on meropenem, Levaquin. Today is day #4. We will discontinue the Levaquin now because of LFT elevation and may be able to use ertapenem 1 g IV every 24 hours to complete 10-14 days of pyelonephritis therapy as outpatient. Cl Aguilar MD
[2018-03-12] MEDS ORDERED: Sodium Chloride 0.9% 500 ML IV SCH (15:15)
--- NOTE | 2018-03-12 17:06 | CP.PCM.PN ---
<Abdulaziz Arreaga - Last Filed: 03/12/18 17:03> Subjective - Date & Time of Evaluation Date of Evaluation: 03/12/18 Time of Evaluation: 08:00 - Subjective Subjective: Abdulaziz Arreaga PGY1 Medicine Progress Note for Dr. Ku Patient was seen and examined at bedside this morning. Family members were present at bedside for language interpretation. Patient was complaining of weakness, nausea, abdominal tenderness, and ongoing cough. she denied chest pain , shortness of breath, vomiting, diarrhea, frequency, urgency, and dysuria. No overnight changes. Later in the afternoon, patient was found to have some lightheadedness and dizziness; she will be seen by PT after interview. A full 12 point ROS was conducted and unremarkable except as stated above. Objective - Vital Signs/Intake and Output Vital Signs (last 24 hours): Temp Pulse Resp BP Pulse Ox 98 F 82 20 93/60 L 97 03/12/18 08:17 03/12/18 08:17 03/12/18 08:17 03/12/18 08:17 03/12/18 08:17 - Medications Medications: Current Medications Acetaminophen (Tylenol 325mg Tab) 650 mg PO Q6H PRN PRN Reason: Fever >100.4 F Last Admin: 03/09/18 09:45 Dose: 650 mg Enoxaparin Sodium (Lovenox) 40 mg SC DAILY [facility] PRN Reason: Protocol Last Admin: 03/12/18 11:26 Dose: 40 mg Famotidine (Pepcid) 20 mg PO HS [facility] Last Admin: 03/11/18 22:38 Dose: 20 mg Meropenem (Merrem Iv 1 Gm Premix) 50 mls @ 100 mls/hr IVPB Q8 [facility] PRN Reason: Protocol Last Admin: 03/12/18 14:35 Dose: 100 mls/hr Sodium Chloride (Sodium Chloride 0.9%) 500 mls @ 50 mls/hr IV .Q10H [facility] Stop: 03/13/18 01:14 Ibuprofen (Motrin Tab) 400 mg PO Q6H PRN PRN Reason: Fever >100.4 F Last Admin: 03/11/18 01:08 Dose: 400 mg Lactobacillus Acidophilus (Bacid Acidophilus) 1 cap PO BID [facility] Last Admin: 03/12/18 11:24 Dose: 1 cap Morphine Sulfate (Morphine) 2 mg IVP Q4H PRN PRN Reason: Pain, severe (8-10) Last Admin: 03/09/18 08:54 Dose: 2 mg Ondansetron HCl (Zofran Inj) 4 mg IVP Q12H PRN PRN Reason: Nausea/Vomiting Last Admin: 03/11/18 05:54 Dose: 4 mg Pantoprazole Sodium (Protonix Ec Tab) 40 mg PO 0600 [facility] Last Admin: 03/12/18 05:01 Dose: 40 mg - Labs Labs: 03/12/18 07:00 03/12/18 07:00 - Constitutional Appears: Well, No Acute Distress - Head Exam Head Exam: ATRAUMATIC, NORMAL INSPECTION, NORMOCEPHALIC - Eye Exam Eye Exam: EOMI, Normal appearance, PERRL Pupil Exam: NORMAL ACCOMODATION, PERRL - ENT Exam ENT Exam: Mucous Membranes Moist, Normal Exam - Neck Exam Neck Exam: Full ROM, Normal Inspection. absent: Lymphadenopathy - Respiratory Exam Respiratory Exam: Clear to Ausculation Bilateral, NORMAL BREATHING PATTERN. absent: Rales, Rhonchi, Wheezes, Respiratory Distress, Stridor - Cardiovascular Exam Cardiovascular Exam: REGULAR RHYTHM, +S1, +S2. absent: Murmur - GI/Abdominal Exam GI & Abdominal Exam: Soft, Normal Bowel Sounds. absent: Distended, Firm, Rigid , Tenderness Additional comments: Negative CVA tenderness. However, patient still has mild RLQ tenderness. - Extremities Exam Extremities Exam: Full ROM, Normal Capillary Refill, Normal Inspection. absent : Joint Swelling, Pedal Edema - Back Exam Back Exam: NORMAL INSPECTION. absent: CVA tenderness (L), CVA tenderness (R) - Neurological Exam Neurological Exam: Alert, Awake, Oriented x3 Neuro motor strength exam: Left Upper Extremity: 5, Right Upper Extremity: 5, Left Lower Extremity: 5, Right Lower Extremity: 5 - Skin Skin Exam: Dry, Intact, Normal Color, Warm Assessment and Plan - Assessment and Plan (Free Text) Assessment: Patient is a 42 y/o F with PMHx of migraines who presented to the ED for 3 weeks of R-flank pain with associated nausea, dysuria, and foul odor with urination. She denied hematuria and increased frequency of urination. On Chest/ Abd/Pelvis CT, patient was found to have mild enlargement, edema, and hydronephrosis of the R-kidney without nephrolithiasis and obstructive uropathy. Multifocal pneumonia in right and left lower lobe with large bilateral pleural effusions. Patient is in the hospital for treatment of Pyelonephritis and Hospital Acquired Pneumonia. Plan: Pyelonephritis - Improved pain on physical exam - WBC 6.7, afebrile - As per ID recs, patient can c/w ertapenem 1 gram IV every 24 hours to complete 10-14 days of therapy as outpatient - UCx (03/06): positive for ESBL - UA (03/06): +LE , + bactera, + blood - BCx negative - CT abd/pelvis (03/09): mild edema, enlargement in R kidney and mild R hydronephrosis without nephrolithiasis, obstructive uropathy or perinephric fat stranding. Multifocal pneumonia in R-low lobe, lingula, and L-low lobe, large bilateral pleural effusions. - ID recs appreciated Hospital Acquired Pneumonia (HAP) - As per ID recs, d/c Levaquin (Day #4) since patient has trending upwards of LFTs (AST/ALT 44/48) - d/c Lasix - CXR (03/11): small pleural effusion. Improved. - Improved pleural effusion; thoracentesis not necessary - CT abd/pelvis: multifocal pneumonia in RLL, lingula, and LLL, large b/l pleural effusions worse on right - Legionella negative Dizziness - Patient was evaluated by PT today and was experiencing dizziness during therapy - Orthostatics conducted and were negative - As per PT, positive Jacque Hallpike manuever Chest Pain - resolved - [employer] for chest pain on 03/07; atypical in nature - Normal SaO2 - V/Q scan was negative for PE GI ppx: protonix DVT ppx: SCDs, lovenox 40 Dispo: Patient will continue to be managed on the floor due to worsening dizziness. Scheduled for outpatient clinic appointment on 03/25/18 at 2 pm. Case was discussed and reviewed with Attending Physician Dr. Ku. <Chelsea Ku - Last Filed: 03/13/18 07:39> Objective - Vital Signs/Intake and Output Vital Signs (last 24 hours): Temp Pulse Resp BP Pulse Ox 97.7 F 70 19 92/60 L 100 03/12/18 17:18 03/13/18 06:00 03/12/18 17:18 03/12/18 17:18 03/12/18 17:18 Intake and Output: 03/13/18 03/13/18 06:59 18:59 Intake Total 600 Balance 600 - Medications Medications: Current Medications Acetaminophen (Tylenol 325mg Tab) 650 mg PO Q6H PRN PRN Reason: Fever >100.4 F Last Admin: 03/09/18 09:45 Dose: 650 mg Enoxaparin Sodium (Lovenox) 40 mg SC DAILY [facility] PRN Reason: Protocol Last Admin: 03/12/18 11:26 Dose: 40 mg Famotidine (Pepcid) 20 mg PO HS [facility] Last Admin: 03/12/18 21:22 Dose: 20 mg Ibuprofen (Motrin Tab) 400 mg PO Q6H PRN PRN Reason: Fever >100.4 F Last Admin: 03/11/18 01:08 Dose: 400 mg Lactobacillus Acidophilus (Bacid Acidophilus) 1 cap PO BID [facility] Last Admin: 03/12/18 17:33 Dose: 1 cap Morphine Sulfate (Morphine) 2 mg IVP Q4H PRN PRN Reason: Pain, severe (8-10) Last Admin: 03/09/18 08:54 Dose: 2 mg Ondansetron HCl (Zofran Inj) 4 mg IVP Q12H PRN PRN Reason: Nausea/Vomiting Last Admin: 03/11/18 05:54 Dose: 4 mg Pantoprazole Sodium (Protonix Ec Tab) 40 mg PO 0600 [facility] Last Admin: 03/13/18 05:35 Dose: 40 mg - Labs Labs: 03/12/18 07:00 03/12/18 07:00 Attending/Attestation - Attestation I have personally seen and examined this patient.: Yes I have fully participated in the care of the patient.: Yes I have reviewed all pertinent clinical information, including history, physical exam and plan: Yes Notes (Text): Patient seen and examined by me at 11:25AM with resident 03/12/18. Case including HPI, physical exam, and assessment and plan discussed with resident. Agree with above with following additions/corrections. Patient is a 42-year-old female with no significant past medical history that presented to emergency room with 2-3 days of right flank pain associated with nausea. Patient states she is feeling better. However, she feels weak and dizzy today. Shortness of breath resolved. Dysuria has resolved. Still with mild right lower quadrant abdominal pain. Right flank pain resolved. No diarrhea. She denies any chest pain or palpitations. No headaches or dizziness. No nausea or vomiting. Patient is afebrile. Denies any chills. Physical exam: Gen: Awake and alert sitting up in bed in no acute distress. HEENT: Normocephalic, atraumatic. Extraocular muscles intact, pupils equal reactive. No scleral icterus. Oropharynx is pink and moist. Neck is supple. Cardiovascular: Regular rhythm. Normal S1, S2. No murmurs, rubs, or gallops appreciated Pulmonary: Normal respiratory effort. Improved breath sounds. No rhonchi, rales, or wheezing appreciated Gastrointestinal: Soft, positive mild right lower quadrant tenderness with deep palpation, nondistended. Positive bowel sounds all 4 quadrants, no guarding. Musculoskeletal: Moves all extremities. No calf tenderness. No edema appreciated. No CVA tenderness. Central nervous system: AAO x 3. Dermatologic: Skin warm and dry Assessment and plan: Patient is a 42-year-old female with no significant past medical history that presented to emergency room with 2-3 days of right flank pain associated with nausea. 1. Right sided pyelonephritis. Urine culture positive for ESBL. ID following, recommendations appreciated. Continue meropenem. Patient to go home on ertapenem. No leukocytosis. Patient remains afebrile. Repeat chest CT/abdomen/ pelvis per radiologist shows mild edema and enlargement the right kidney and mild right hydronephrosis without evidence of nephrolithiasis, obstructive uropathy or perinephric fat stranding; small pelvic ascites, apparent circumferential mural thickening of the urinary bladder which is nonspecific and could be related to under cyst tension however acute cystitis cannot be excluded . CT abdomen and pelvis on 03/05/2018 per radiologist showed minimal perinephric stranding around the right kidney which could be secondary to pyelonephritis, there is no evidence of hydronephrosis, there is a small mount of fluid in the pelvis and the right pericolic gutter. 2. Multifocal pneumonia on chest CT. Levaquin stopped secondary to elevated LFTs. Continue meropenem. Patient to go home on ertapenem. ID following, recommendations appreciated 3. Bilateral pleural effusions seen on CT. Chest xray with improved small pleural effusions. Lasix stopped. Encourage incentive spirometer 4. Dizziness. Will check orthostatics. Episodes of hypotension. 5. Shortness of breath. Hypoxemia. Resolved. Continue to monitor. 6. Chest pain. Resolved. Troponins within normal limits. VQ scan low probability for PE 7. Anemia. H&H stable. Patient currently asymptomatic. Continue to monitor CBC. 8. GI/DVT prophylaxis. Protonix and Lovenox 9. Patient is a full code Case was discussed in detail with patient regarding current diagnosis and treatment plan.
[2018-03-13] MEDS: Pantoprazole 40 mg EC Tab PO SCH (05:35)
[2018-03-13 07:07] LABS: BASO # 0.06 K/mm3 (0.0-2.0); BASO % 0.9 % (0.0-3.0); EOS # 0.3 (0.0-0.7); EOS % 4.6 % (1.5-5.0); GRAN # 3.28 (1.4-6.5); GRAN % 47.5 % (50.0-68.0); HEMOGLOBIN 11.1 g/dL (12.0-16.0); LYMPH # 2.7 (1.2-3.4); MEAN CELL VOLUME 85.5 fl (80.0-105.0); MEAN CORPUSCULAR HEMOGLOBIN 29.3 pg (25.0-35.0); MEAN CORPUSCULAR HGB CONC 34.3 g/dl (31.0-37.0); MEAN PLATELET VOLUME 9.3 fl (7.0-11.0); MONO # 0.6 (0.1-0.6); RBC 3.79 10^6/uL (3.5-6.1); RED CELL DISTRIBUTION WIDTH 14.8 % (11.5-14.5); WHITE BLOOD COUNT 6.9 10^3/ul (4.5-11.0)
[2018-03-13 07:59] LABS: ALB/GLOB RATIO 1.1 (1.1-1.8); ALBUMIN 3.7 g/dL (3.0-4.8); ALT/SGPT 86 U/L (7-56); AST/SGOT 116 U/L (14-36); BLOOD UREA NITROGEN 12 mg/dL (7-21); CALCIUM 9.1 mg/dL (8.4-10.5); GFR NON-AFRICAN AMERICAN > 60
[2018-03-13] MEDS: Lactobacillus Acidophilus 500 MU Cap PO SCH ×2 (09:00→17:50)
[2018-03-13] MEDS: Enoxaparin 40 mg Syringe SC SCH (09:02)
[2018-03-13] MEDS ORDERED: Sodium Chloride 0.9% 500 ML IV SCH (11:00)
[2018-03-13 11:13] LABS: BILIRUBIN,DIRECT 0.1 mg/dL (0.0-0.4)
--- NOTE | 2018-03-13 14:42 | CP.PCM.PN ---
<Abdulaziz Arreaga - Last Filed: 03/13/18 15:13> Subjective - Date & Time of Evaluation Date of Evaluation: 03/13/18 Time of Evaluation: 07:00 - Subjective Subjective: Abdulaziz Arreaga PGY1 Medicine Progress Note for Dr. Ku Patient was seen and examined at bedside this morning. She was no longer complaining of dizziness, weakness, abdominal pain, nausea, vomiting, diarrhea. She will be evaluated by physical therapy later today. No overnight changes. BP was 92/54. Patient resting comfortably and in no acute distress. A full 12 point ROS was conducted and unremarkable except as stated above. Objective - Vital Signs/Intake and Output Vital Signs (last 24 hours): Temp Pulse Resp BP Pulse Ox 98.0 F 70 18 92/54 L 99 03/13/18 06:00 03/13/18 10:00 03/13/18 06:00 03/13/18 06:00 03/13/18 06:00 Intake and Output: 03/13/18 03/13/18 06:59 18:59 Intake Total 600 Balance 600 - Medications Medications: Current Medications Famotidine (Pepcid) 20 mg PO HS [facility] Last Admin: 03/12/18 21:22 Dose: 20 mg Sodium Chloride (Sodium Chloride 0.9%) 500 mls @ 125 mls/hr IV .Q4H [facility] Stop: 03/13/18 14:59 Last Admin: 03/13/18 11:08 Dose: 125 mls/hr Ibuprofen (Motrin Tab) 400 mg PO Q6H PRN PRN Reason: Fever >100.4 F Last Admin: 03/11/18 01:08 Dose: 400 mg Lactobacillus Acidophilus (Bacid Acidophilus) 1 cap PO BID [facility] Last Admin: 03/13/18 09:00 Dose: 1 cap Ondansetron HCl (Zofran Inj) 4 mg IVP Q12H PRN PRN Reason: Nausea/Vomiting Last Admin: 03/11/18 05:54 Dose: 4 mg Pantoprazole Sodium (Protonix Ec Tab) 40 mg PO 0600 [facility] Last Admin: 03/13/18 05:35 Dose: 40 mg - Labs Labs: 03/13/18 06:30 03/13/18 06:30 - Constitutional Appears: Well - Head Exam Head Exam: ATRAUMATIC, NORMAL INSPECTION, NORMOCEPHALIC - Eye Exam Eye Exam: EOMI, Normal appearance, PERRL - ENT Exam ENT Exam: Mucous Membranes Moist, Normal Exam - Neck Exam Neck Exam: Full ROM, Normal Inspection. absent: Lymphadenopathy - Respiratory Exam Respiratory Exam: Clear to Ausculation Bilateral, NORMAL BREATHING PATTERN. absent: Rales, Rhonchi, Wheezes, Stridor - Cardiovascular Exam Cardiovascular Exam: REGULAR RHYTHM, +S1, +S2. absent: Murmur - GI/Abdominal Exam GI & Abdominal Exam: Soft, Normal Bowel Sounds. absent: Guarding, Rigid, Tenderness Additional comments: No CVA tenderness. - Extremities Exam Extremities Exam: Full ROM, Normal Capillary Refill, Normal Inspection. absent : Joint Swelling, Pedal Edema - Back Exam Back Exam: NORMAL INSPECTION. absent: CVA tenderness (L), CVA tenderness (R) - Neurological Exam Neurological Exam: Alert, Awake, Oriented x3 Neuro motor strength exam: Left Upper Extremity: 5, Right Upper Extremity: 5, Left Lower Extremity: 5, Right Lower Extremity: 5 - Skin Skin Exam: Dry, Intact, Normal Color, Warm Assessment and Plan - Assessment and Plan (Free Text) Assessment: Patient is a 42 y/o F with PMHx of migraines who presented to the ED for 3 weeks of R-flank pain with associated nausea, dysuria, and foul odor with urination. She denied hematuria and increased frequency of urination. On Chest/ Abd/Pelvis CT, patient was found to have mild enlargement, edema, and hydronephrosis of the R-kidney without nephrolithiasis and obstructive uropathy. Multifocal pneumonia in right and left lower lobe with large bilateral pleural effusions. Patient is in the hospital for treatment of Pyelonephritis and Hospital Acquired Pneumonia. Plan: R-sided Pyelonephritis - clinical improvement - Improved pain on physical exam; negative for CVA tenderness - WBC 6.9, afebrile - As per ID recs, c/w ertapenem 1 gram IV every 24 hours to complete 10-14 days of therapy as outpatient (Day #6) - UCx (03/06): positive for ESBL - UA (03/06): +LE , + bactera, + blood - BCx negative - CT abd/pelvis (03/09): mild edema, enlargement in R kidney and mild R hydronephrosis without nephrolithiasis, obstructive uropathy or perinephric fat stranding. Multifocal pneumonia in R-low lobe, lingula, and L-low lobe, large bilateral pleural effusions. - ID recs appreciated Worsening Transaminitis likely 2/2 antibiotic coverage - AST/ALT: 116/86 (03/13) - 500cc bolus NS over 2 hours - Repeat LFTs in the afternoon - f/u with ID recs in regards to antibiotics causing transaminitis Dizziness - improving - no dizziness on exam today - BP today is 92/54 - Patient needs re-evaluation by PT - Orthostatics conducted and were negative - As per PT, positive [facility] Acquired Pneumonia (HAP) - resolved - d/c Levaquin - CXR (03/11): small pleural effusion. Improved. - Improved pleural effusion; thoracentesis not necessary - CT abd/pelvis: multifocal pneumonia in RLL, lingula, and LLL, large b/l pleural effusions worse on right - Legionella negative Chest Pain - resolved - [employer] for chest pain on 03/07; atypical in nature - Normal SaO2 - V/Q scan was negative for PE GI ppx: protonix DVT ppx: SCDs, lovenox 40 Dispo: Scheduled for outpatient clinic appointment on 03/25/18 at 2 pm. Continue to monitor patient on floor, discharge once transaminitis is resolved. Case was discussed and reviewed with Attending Physician Dr. Ku. <Chelsea Ku R - Last Filed: 03/14/18 08:40> Objective - Vital Signs/Intake and Output Vital Signs (last 24 hours): Temp Pulse Resp BP Pulse Ox 97.9 F 71 20 106/57 L 98 03/14/18 07:57 03/14/18 07:57 03/14/18 07:57 03/14/18 07:57 03/14/18 07:57 Intake and Output: 03/14/18 03/14/18 06:59 18:59 Intake Total 900 Balance 900 - Medications Medications: Current Medications Famotidine (Pepcid) 20 mg PO HS [facility] Last Admin: 03/13/18 21:37 Dose: 20 mg Meropenem (Merrem Iv 1 Gm Premix) 50 mls @ 100 mls/hr IVPB Q8 [facility] PRN Reason: Protocol Last Admin: 03/14/18 05:41 Dose: 100 mls/hr Ibuprofen (Motrin Tab) 400 mg PO Q6H PRN PRN Reason: Fever >100.4 F Last Admin: 03/11/18 01:08 Dose: 400 mg Lactobacillus Acidophilus (Bacid Acidophilus) 1 cap PO BID [facility] Last Admin: 03/13/18 17:50 Dose: 1 cap Ondansetron HCl (Zofran Inj) 4 mg IVP Q12H PRN PRN Reason: Nausea/Vomiting Last Admin: 03/11/18 05:54 Dose: 4 mg Pantoprazole Sodium (Protonix Ec Tab) 40 mg PO 0600 [facility] Last Admin: 03/14/18 05:41 Dose: 40 mg - Labs Labs: 03/14/18 07:00 03/14/18 07:00 Attending/Attestation - Attestation I have personally seen and examined this patient.: Yes I have fully participated in the care of the patient.: Yes I have reviewed all pertinent clinical information, including history, physical exam and plan: Yes Notes (Text): Patient seen and examined by me at 11:00AM with resident 03/13/18. Case including HPI, physical exam, and assessment and plan discussed with resident. Agree with above with following additions/corrections. Patient is a 42-year-old female with no significant past medical history that presented to emergency room with 2-3 days of right flank pain associated with nausea. Patient states she is feeling much better. Dizziness/lightheadedness resolved. Shortness of breath resolved. Dysuria has resolved. Still with mild right lower quadrant abdominal pain. Right flank pain resolved. No chest pain or palpitations. No headaches or dizziness. No nausea or vomiting. No fevers or chills. No diarrhea. Physical exam: Gen: Awake and alert sitting up in chair in no acute distress. HEENT: Normocephalic, atraumatic. Extraocular muscles intact, pupils equal reactive. No scleral icterus. Oropharynx is pink and moist. Neck is supple. Cardiovascular: Regular rhythm. Normal S1, S2. No murmurs, rubs, or gallops appreciated Pulmonary: Normal respiratory effort. No rhonchi, rales, or wheezing appreciated Gastrointestinal: Soft, positive mild right lower quadrant tenderness with deep palpation, nondistended. Positive bowel sounds all 4 quadrants, no guarding. Musculoskeletal: Moves all extremities. No calf tenderness. No edema appreciated. No CVA tenderness. Central nervous system: AAO x 3. Dermatologic: Skin warm and dry Assessment and plan: Patient is a 42-year-old female with no significant past medical history that presented to emergency room with 2-3 days of right flank pain associated with nausea. 1. Hypotension. Started on IV fluids. Unclear what baseline is 2. Elevated LFTs. Levaquin was stopped. patient will need repeat blood work post completion of antibiotics per ID. 3. Right sided pyelonephritis. Urine culture positive for ESBL. ID following, recommendations appreciated. Continue meropenem. Patient to go home on ertapenem. No leukocytosis. Patient remains afebrile. Repeat chest CT/abdomen/ pelvis per radiologist shows mild edema and enlargement the right kidney and mild right hydronephrosis without evidence of nephrolithiasis, obstructive uropathy or perinephric fat stranding; small pelvic ascites, apparent circumferential mural thickening of the urinary bladder which is nonspecific and could be related to under cyst tension however acute cystitis cannot be excluded . CT abdomen and pelvis on 03/05/2018 per radiologist showed minimal perinephric stranding around the right kidney which could be secondary to pyelonephritis, there is no evidence of hydronephrosis, there is a small mount of fluid in the pelvis and the right pericolic gutter. 4. Multifocal pneumonia on chest CT. Levaquin stopped secondary to elevated LFTs. Continue meropenem. Patient to go home on ertapenem. ID following, recommendations appreciated 4. Bilateral pleural effusions seen on CT. Chest xray with improved small pleural effusions. Lasix stopped. Encourage incentive spirometer 5. Dizziness. Orthostatics negative. Dizziness resolved. 6. Shortness of breath. Hypoxemia. Resolved. Continue to monitor. 7. Chest pain. Resolved. Troponins within normal limits. VQ scan low probability for PE 8. Anemia. H&H stable. Patient currently asymptomatic. Continue to monitor CBC. 9. GI/DVT prophylaxis. Protonix and Lovenox 10. Patient is a full code Case was discussed in detail with patient regarding current diagnosis and treatment plan.
[2018-03-13 16:08] LABS: ALBUMIN 3.5 g/dL (3.0-4.8); BILIRUBIN,DIRECT 0.1 mg/dL (0.0-0.4)
[2018-03-13] MEDS ORDERED: Sodium Chloride 0.9% 1,000 ML IV SCH (16:30)
[2018-03-13] MEDS: Meropenem IV 1 gm in NS 50 ML IVPB SCH ×2 (17:50→21:36)
--- NOTE | 2018-03-14 01:19 | PN ---
Copied To: Cl Aguilar MD Attending MD: Cl Aguilar MD DATE: 03/13/2018 SUBJECTIVE: The patient was seen earlier today in room 366, bed 1. No fevers. No chills. No nausea. No vomiting. PHYSICAL EXAMINATION: VITAL SIGNS: Temperature is 98, blood pressure is 90/50, respiratory rate of 18. HEENT: Unremarkable. NECK: Supple. LUNGS: Have decreased breath sounds. HEART: Normal S1 and S2. ABDOMEN: Soft, nontender. LABORATORY EXAMINATION: Reveals a white count of 6.9, hemoglobin 11, platelets of 396. Chemistries reveals a BUN of 12, creatinine of 0.7. LFTs are elevated at 126, 94, 129. Urinalysis is noted and serology is noted. Review of orders reveals the patient to be on meropenem and the patient is also on Zofran. The patient is on Motrin, Pepcid and Protonix. We will follow with you. Cl Aguilar MD
[2018-03-14] MEDS: Pantoprazole 40 mg EC Tab PO SCH (05:41)
[2018-03-14] MEDS: Meropenem IV 1 gm in NS 50 ML IVPB SCH ×2 (05:41→14:33)
[2018-03-14 07:27] LABS: BASO # 0.03 K/mm3 (0.0-2.0); BASO % 0.4 % (0.0-3.0); EOS # 0.3 (0.0-0.7); EOS % 3.1 % (1.5-5.0); GRAN # 4.45 (1.4-6.5); GRAN % 56.1 % (50.0-68.0); HEMOGLOBIN 11.4 g/dL (12.0-16.0); LYMPH # 2.7 (1.2-3.4); LYMPH % 33.9 % (22.0-35.0); MEAN CELL VOLUME 86.9 fl (80.0-105.0); MEAN CORPUSCULAR HEMOGLOBIN 29.3 pg (25.0-35.0); MEAN CORPUSCULAR HGB CONC 33.7 g/dl (31.0-37.0); MEAN PLATELET VOLUME 9.3 fl (7.0-11.0); MONO # 0.5 (0.1-0.6); MONO % 6.5 % (1.0-6.0); RBC 3.89 10^6/uL (3.5-6.1); RED CELL DISTRIBUTION WIDTH 15.2 % (11.5-14.5); WHITE BLOOD COUNT 7.9 10^3/ul (4.5-11.0)
[2018-03-14 07:58] VITALS: BP 106/57; PULSE 71; RESP 20; TEMP 97.9; O2SAT 98
[2018-03-14 08:19] LABS: ALB/GLOB RATIO 1.1 (1.1-1.8); ALT/SGPT 119 U/L (7-56); AST/SGOT 135 U/L (14-36); BLOOD UREA NITROGEN 12 mg/dL (7-21); CALCIUM 9.5 mg/dL (8.4-10.5); GFR NON-AFRICAN AMERICAN > 60
--- NOTE | 2018-03-14 13:54 | PN ---
Copied To: Cl Aguilar MD Attending MD: Cl Aguilar MD DATE: 03/14/2018 SUBJECTIVE: The patient is in bed. She is doing much better. No fevers, no chills, no nausea. PHYSICAL EXAMINATION: VITAL SIGNS: Temperature is 97, blood pressure is 106/50, respiratory rate of 18. HEENT: Examination is unremarkable. NECK: Supple. LUNGS: Have decreased breath sounds. HEART: Normal S1, S2. ABDOMEN: Soft, nontender. No rebound, no guarding, no masses. DATA: Laboratory examination is reviewed. ASSESSMENT AND PLAN: This is a 42-year-old female who is originally from [facility] was admitted with sepsis, right-sided pyelonephritis with an extended-spectrum beta-lactamase Escherichia coli and the community acquired pneumonia also, on day #6 of meropenem, may be able to be discharged on IV ertapenem, today is day #6 of 10 to 14 days and liver function test appears to be about the same. Cl Aguilar MD
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
--- NOTE | 2018-03-14 15:29 | US ---
Date of service: 03/14/2018 HISTORY: elevated LFTs COMPARISON: None. TECHNIQUE: Sonographic evaluation of the abdomen. FINDINGS: LIVER: Measures 13.9 cm. Normal echogenicity of the liver parenchyma. No mass. No intrahepatic bile duct dilatation. GALLBLADDER: Unremarkable. No gallstones. COMMON BILE DUCT: Measures 1.3 mm. No stones. No dilatation. PANCREAS: Unremarkable as visualized. No mass. No ductal dilatation. RIGHT KIDNEY: Measures 11.7 x 4.2 x 5.6cm. Normal echogenicity. No calculus, mass, or hydronephrosis. LEFT KIDNEY: Measures 9.7 x 4.9 x 5.9cm. Normal echogenicity. No calculus, mass, or hydronephrosis. SPLEEN: Normal in size and contour. No mass. 9.3 x 3.0 x 3.3 cm AORTA: No aneurysmal dilatation. IVC: Unremarkable. OTHER FINDINGS: None. IMPRESSION: Unremarkable abdominal sonogram.
== END 2018-03-14 16:37 | disposition home or self-care (01) | DRG 689 ==
LOC: ED 13:26 → ERH 16:45 → 3RNO 18:02 → OBSVTOIN 03-08 10:42
PROVIDERS: ADMIT Hospitalist; ATTEND Hospitalist
DX: N10 Acute pyelonephritis (principal); B96.20 Unspecified Escherichia coli [E. coli] as the cause of diseases classified elsewhere; J18.9 Pneumonia, unspecified organism; J90 Pleural effusion, not elsewhere classified; Y95 Nosocomial condition; R09.02 Hypoxemia; D64.9 Anemia, unspecified; G43.909 Migraine, unspecified, not intractable, without status migrainosus

== ENCOUNTER 2018-08-23 16:20 | Emergency (ER) | payer MEDICAID, OTHER ==
[2018-08-23 16:34] VITALS: BMI 21.6
[2018-08-23 16:42] VITALS: RESP 18
[2018-08-23 17:20] LABS: URINE BILIRUBIN NEGATIVE (NEGATIVE); URINE BLOOD TRACE-INTACT (NEGATIVE); URINE GLUCOSE (UA) NEGATIVE (NEGATIVE); URINE LEUKOCYTE ESTERASE NEGATIVE Leu/uL (NEGATIVE); URINE PROTEIN NEGATIVE mg/dL (<30 mg/dL); URINE UROBILINOGEN 0.2 E.U./dL (<1 E.U./dL)
[2018-08-23 17:22] LABS: URINE APPEARANCE CLEAR (CLEAR); URINE COLOR YELLOW (YELLOW)
[2018-08-23 17:33] LABS: URINE EPITHELIAL CELLS 0 - 2 /hpf (0-5); URINE RBC 0 - 2 /hpf (0-2)
[2018-08-23 18:00] LABS: BASO # 0.02 K/mm3 (0.0-2.0); BASO % 0.4 % (0.0-3.0); EOS # 0.2 (0.0-0.7); HEMOGLOBIN 12.8 g/dL (12.0-16.0); LYMPH # 2.3 (1.2-3.4); LYMPH % 44.2 % (22.0-35.0); MEAN CELL VOLUME 91.1 fl (80.0-105.0); MEAN CORPUSCULAR HEMOGLOBIN 30.1 pg (25.0-35.0); MEAN CORPUSCULAR HGB CONC 33.1 g/dl (31.0-37.0); MEAN PLATELET VOLUME 10.3 fl (7.0-11.0); MONO # 0.3 (0.1-0.6); MONO % 4.8 % (1.0-6.0); RBC 4.25 10^6/uL (3.5-6.1); RED CELL DISTRIBUTION WIDTH 13.3 % (11.5-14.5); WHITE BLOOD COUNT 5.3 10^3/uL (4.5-11.0)
[2018-08-23 18:05] LABS: ALB/GLOB RATIO 1.4 (1.1-1.8); ALBUMIN 4.7 g/dL (3.0-4.8); ALT/SGPT 16 U/L (7-56); AST/SGOT 30 U/L (14-36); BLOOD UREA NITROGEN 15 mg/dL (7-21); CALCIUM 9.8 mg/dL (8.4-10.5); GFR NON-AFRICAN AMERICAN > 60
[2018-08-23 18:47] VITALS: O2SAT 100
--- NOTE | 2018-08-23 19:05 | US ---
Date of service: 08/23/2018 HISTORY: lower abdominal pain, back pain, rule out torsion COMPARISON: None available. TECHNIQUE: Transabdominal and transvaginal FINDINGS: UTERUS: Measures 8.2 x 5.4 x 6.7 cm. Retroverted. No fibroid or other mass lesion seen. ENDOMETRIUM: Measures 8 mm in diameter. Unremarkable. CERVIX: No cervical abnormality identified. RIGHT OVARY: Measures 3.1 x 1.7 x 2.8 cm. No solid mass. Normal flow. LEFT OVARY: Measures 2.9 x 2.1 x 2.4 cm. No solid mass. Normal flow. Few small physiologic cysts. FREE FLUID: Trace left adnexal fluid. OTHER FINDINGS: None. IMPRESSION: Unremarkable pelvic ultrasound.
[2018-08-23 20:06] VITALS: BP 112/71; PULSE 83; TEMP 98.7
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
== END 2018-08-23 20:06 | disposition home or self-care (01) ==
LOC: ED 16:20
DX: G89.29 Other chronic pain (principal); M54.9 Dorsalgia, unspecified
CPT/HCPCS: 76830; 80053; 81001; 81025; 85025; 93971; 96374; 99283; J1885